=== PATIENT | male | born 1990 | race Hispanic/Latino ===

== ENCOUNTER 2019-01-20 19:24 | Emergency (ER) | payer SELFPAY ==
--- NOTE | 2019-01-20 20:52 | ER ---
Nurse's Notes [facility] Name: Lio Camacho Age: 28 yrs Sex: Male : 1990 Arrival Date: 01/20/2019 Time: 19:35 Bed 24 Private MD: Diagnosis: Chlamydial cystitis and urethritis Presentation: 01/20 19:47 Presenting complaint: Patient states: Burning sensation upon urination for over a week. ca1 Pt also c/o urgency and urinary frequency. Denies fever and chills. Transition of care: patient was not received from another setting of care. Onset of symptoms was January 20, 2019. Risk Assessment: Do you want to hurt yourself or someone else? Patient reports no desire to harm self or others. Initial Sepsis Screen: Does the patient meet any 2 criteria? No. Patient's initial sepsis screen is negative. Does the patient have a suspected source of infection? No. Patient's initial sepsis screen is negative. Care prior to arrival: None. 19:47 Method Of Arrival: Ambulatory ca1 19:47 Acuity: MARTHA 4 ca1 Historical: - Allergies: 19:51 No Known Allergies; ca1 - Home Meds: 19:51 None [Active]; ca1 - PMHx: 19:51 None; ca1 - PSHx: 19:51 Appendectomy; ca1 - Immunization history:: Adult Immunizations not up to date, Flu vaccine is up to date. - Social history:: Smoking status: Patient uses tobacco products, denies chronic smoking, but will smoke occasionally. - Ebola Screening: : Patient negative for fever greater than or equal to 101.5 degrees Fahrenheit, and additional compatible Ebola Virus Disease symptoms Patient denies exposure to infectious person Patient denies travel to an Ebola-affected area in the 21 days before illness onset No symptoms or risks identified at this time. Screenin:31 Abuse screen: Denies threats or abuse. Denies injuries from another. Nutritional mg2 screening: No deficits noted. Tuberculosis screening: No symptoms or risk factors identified. Fall Risk None identified. Assessment: 20:35 General: Appears in no apparent distress. comfortable, Behavior is calm, cooperative. mg2 Pain: Complains of pain in penis Pain does not radiate. Pain currently is 2 out of 10 on a pain scale. Quality of pain is described as burning, Pain began gradually. Neuro: Level of Consciousness is awake, alert, obeys commands, Oriented to person, place, time, situation. Cardiovascular: Capillary refill < 3 seconds Patient's skin is warm and dry. Respiratory: Airway is patent Respiratory effort is even, unlabored, Respiratory pattern is regular, symmetrical. GI: No signs and/or symptoms were reported involving the gastrointestinal system. : Reports burning with urination. : Reports discharge, from penis that is watery, white. EENT: No deficits noted. Derm: Skin is intact, is healthy with good turgor, Skin is pink, warm \T\ dry. normal. Musculoskeletal: Circulation, motion, and sensation intact. Capillary refill < 3 seconds. Vital Signs: 19:51 BP 169 / 91; Pulse 87; Resp 17 S; Temp 98.1(TE); Pulse Ox 99% on R/A; Weight 113.4 kg ca1 (R); Height 5 ft. 10 in. (177.80 cm) (R); Pain 0/10; 20:14 BP 141 / 92; Pulse 86; Resp 17 S; Pulse Ox 100% on R/A; Pain 4/10; jp3 19:51 Body Mass Index 35.87 (113.40 kg, 177.80 cm) ca1 20:14 4/10 on pain scale while urinating. jp3 ED Course: 19:35 Patient arrived in ED. cl3 19:49 Triage completed. ca1 19:51 Arm band placed on right wrist. ca1 19:54 Kwadwo Tellez MD is Attending Physician. kdr 20:05 Gerald Head RN is Primary Nurse. mg2 20:15 Bed in low position. Call light in reach. Side rails up X 1. Adult w/ patient. Warm jp3 blanket given. Verbal reassurance given. Pulse ox on. NIBP on. 20:15 Patient maintains SpO2 saturation greater than 95% on room air. jp3 20:15 Urine collected: clean catch specimen, clear, mariela colored. jp3 21:10 No provider procedures requiring assistance completed. Patient did not have IV access mg2 during this emergency room visit. Administered Medications: 21:11 Drug: AZITHromycin 1 grams Route: PO; mg2 21:14 Follow up: Response: No adverse reaction; Medication administered at discharge. mg2 21:11 Drug: Doxycycline 100 mg Route: PO; mg2 21:14 Follow up: Response: No adverse reaction; Medication administered at discharge. mg2 Outcome: 20:51 Discharge ordered by . kdr 21:14 Patient left the ED. mg2 21:14 Discharged to home ambulatory, with family. mg2 21:14 Condition: good 21:14 Discharge instructions given to patient, family, Instructed on discharge instructions, follow up and referral plans. medication usage, Demonstrated understanding of instructions, follow-up care, medications, Prescriptions given X 1. Signatures: Kwadwo Tellez MD MD kdr Gerald Head RN RN mg2 Enrique Workman jp3 Miguelina Oglesby RN RN ca1 Joi Swanson cl3
--- NOTE | 2019-01-20 20:52 | EDPHYS ---
Physician Documentation [facility] Name: Lio Camacho Age: 28 yrs Sex: Male : 1990 Arrival Date: 01/20/2019 Time: 19:35 Bed 24 Private MD: ED Physician Kwadwo Tellez HPI: 01/20 20:47 This 28 yrs old Male presents to ER via Ambulatory with complaints of Burning kdr To Private. 20:47 The patient presents with urinary symptoms, dysuria. Onset: The symptoms/episode kdr began/occurred gradually, 1 week(s) ago. Modifying factors: The symptoms are alleviated by nothing, the symptoms are aggravated by urinating. Associated signs and symptoms: Pertinent positives: dysuria, nausea. Severity of symptoms: At their worst the symptoms were mild, moderate, just prior to arrival, in the emergency department the symptoms are unchanged. The patient has not experienced similar symptoms in the past. The patient has not recently seen a physician. His is currently being treated for Chlamydia . Denies unprotected sex with anyone other than his . Historical: - Allergies: 19:51 No Known Allergies; ca1 - Home Meds: 19:51 None [Active]; ca1 - PMHx: 19:51 None; ca1 - PSHx: 19:51 Appendectomy; ca1 - Immunization history:: Adult Immunizations not up to date, Flu vaccine is up to date. - Social history:: Smoking status: Patient uses tobacco products, denies chronic smoking, but will smoke occasionally. - Ebola Screening: : Patient negative for fever greater than or equal to 101.5 degrees Fahrenheit, and additional compatible Ebola Virus Disease symptoms Patient denies exposure to infectious person Patient denies travel to an Ebola-affected area in the 21 days before illness onset No symptoms or risks identified at this time. ROS: 20:47 Constitutional: Negative for fever, chills, and weight loss, Eyes: Negative for injury, kdr pain, redness, and discharge, ENT: Negative for injury, pain, and discharge, Neck: Negative for injury, pain, and swelling, Cardiovascular: Negative for chest pain, palpitations, and edema, Respiratory: Negative for shortness of breath, cough, wheezing, and pleuritic chest pain, Abdomen/GI: Negative for abdominal pain, nausea, vomiting, diarrhea, and constipation, Back: Negative for injury and pain, MS/Extremity: Negative for injury and deformity, Skin: Negative for injury, rash, and discoloration, Neuro: Negative for headache, weakness, numbness, tingling, and seizure activity. Psych: Negative for depression, anxiety, suicide ideation, homicidal ideation, and hallucinations, Allergy/Immunology: Negative for hives, rash, and allergies, Endocrine: Negative for neck swelling, polydipsia, polyuria, polyphagia, and marked weight changes, Hematologic/Lymphatic: Negative for swollen nodes, abnormal bleeding, and unusual bruising. 20:47 : Positive for urinary symptoms, urinary frequency, small amounts, burning with urination, penile discharge, penile pain, Negative for bladder incontinence, foul smelling urine, testicular pain Exam: 20:50 Constitutional: This is a well developed, well nourished patient who is awake, alert, kdr and in no acute distress. 20:50 : CVA tenderness, is absent, Male external genitalia: normal, Bladder: is normal. Vital Signs: 19:51 BP 169 / 91; Pulse 87; Resp 17 S; Temp 98.1(TE); Pulse Ox 99% on R/A; Weight 113.4 kg ca1 (R); Height 5 ft. 10 in. (177.80 cm) (R); Pain 0/10; 20:14 BP 141 / 92; Pulse 86; Resp 17 S; Pulse Ox 100% on R/A; Pain 4/10; jp3 19:51 Body Mass Index 35.87 (113.40 kg, 177.80 cm) ca1 20:14 4/10 on pain scale while urinating. jp3 MDM: 20:47 Data reviewed: vital signs, nurses notes, lab test result(s). Counseling: I had a kdr detailed discussion with the patient and/or guardian regarding: the historical points, exam findings, and any diagnostic results supporting the discharge/admit diagnosis, lab results, the need for outpatient follow up. 20:51 Patient medically screened. kdr 01/20 20:14 Order name: Urine Dipstick--Ancillary (enter results) mw2 01/20 20:38 Order name: GC (GONORR/CHLAMYDIA) Probe kdr 01/20 20:38 Order name: Wet Prep kdr Administered Medications: 21:11 Drug: AZITHromycin 1 grams Route: PO; mg2 21:14 Follow up: Response: No adverse reaction; Medication administered at discharge. mg2 21:11 Drug: Doxycycline 100 mg Route: PO; mg2 21:14 Follow up: Response: No adverse reaction; Medication administered at discharge. mg2 Disposition: 01/20/19 20:51 Discharged to Home. Impression: Chlamydial cystitis and urethritis. - Condition is Stable. - Discharge Instructions: Chlamydia, Male, Sexually Transmitted Disease, [id number], Urinary Tract Infection, Adult, [id number]. - Prescriptions for Doxycycline Hyclate 100 mg Oral Tablet - take 1 tablet by ORAL route every 12 hours for 7 days; 14 tablet. - Medication Reconciliation Form, Thank You Letter, Antibiotic Education form. - Follow up: Private Physician; When: 2 - 3 days; Reason: If symptoms return, Further diagnostic work-up, Recheck today's complaints, Continuance of care, Re-evaluation by your physician. - Problem is new. - Symptoms have improved. Signatures: Dispatcher [employer] EDWI Kwadwo Tellez MD MD kdr Gerald Head RN RN mg2 Miguelina Oglesby RN RN ca1 Corrections: (The following items were deleted from the chart) 21:14 20:51 01/20/2019 20:51 Discharged to Home. Impression: Chlamydial cystitis and mg2 urethritis. Condition is Stable. Forms are Medication Reconciliation Form, Thank You Letter, Antibiotic Education, Prescription Opioid Use. Follow up: Private Physician; When: 2 - 3 days; Reason: If symptoms return, Further diagnostic work-up, Recheck today's complaints, Continuance of care, Re-evaluation by your physician. Problem is new. Symptoms have improved. kdr
[2019-01-20] MEDS ORDERED: AZITHROMYCIN 250 MG TAB ONE (21:07)
[2019-01-20] MEDS ORDERED: DOXYCYCLINE 100 MG CAP PO ONE (21:07)
[2019-01-20 21:21] LABS: Urine Blood NEGATIVE (NEG); Urine Glucose NEGATIVE (NEG); Urine Protein NEGATIVE (NEG); Urine Specific Gravity 1.025 (1.005-1.030)
[2019-01-21 01:36] VITALS: TEMP 98.1
[2019-01-21 01:38] VITALS: BP 141/92; O2SAT 100
[2019-01-24 05:02] LABS: C.trachomatis RNA,TMA Detected (Not Detected)
== END 2019-01-20 21:14 | disposition home or self-care (01) ==
LOC: ER 19:24
DX: A56.01 Chlamydial cystitis and urethritis (principal); Z72.0 Tobacco use
CPT/HCPCS: 81003; 87210; 87490; 87590; 99284

== ENCOUNTER 2020-09-10 01:13 | Emergency (ER) | payer SELFPAY ==
--- NOTE | 2020-09-10 03:01 | ER ---
Nurse's Notes [facility] Name: Lio Camacho Age: 29 yrs Sex: Male : 1990 Arrival Date: 09/10/2020 Time: 01:17 Bed 18 Private MD: Diagnosis: Hypertension Presentation: 09/10 01:20 Chief complaint: Patient states: I have been having high blood pressure. 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 I just want to get it looked at. 01:20 Coronavirus screen: Client denies travel out of the [place] in the last 14 days. At this jb4 time, the client does not indicate any symptoms associated with coronavirus-19. Ebola Screen: No symptoms or risks identified at this time. Initial Sepsis Screen: Does the patient meet any 2 criteria? No. Patient's initial sepsis screen is negative. Does the patient have a suspected source of infection? No. Patient's initial sepsis screen is negative. Risk Assessment: Do you want to hurt yourself or someone else? Patient reports no desire to harm self or others. Onset of symptoms was September 10, 2020. Transition of care: patient was not received from another setting of care. 01:20 Method Of Arrival: Ambulatory jb4 01:20 Acuity: MARTHA 4 jb4 Historical: - Allergies: 01:20 No Known Allergies; jb4 - Home Meds: 01:20 None [Active]; jb4 - PMHx: 01:20 None; jb4 - PSHx: 01:20 None; jb4 - Immunization history:: Adult Immunizations up to date. - Social history:: Smoking status: Patient denies any tobacco usage or history of. Patient/guardian denies using alcohol, street drugs. Screenin:20 Abuse screen: Denies threats or abuse. Nutritional screening: No deficits noted. jb4 Tuberculosis screening: No symptoms or risk factors identified. Fall Risk None identified. Assessment: 01:20 General: Appears in no apparent distress. comfortable, Behavior is calm, cooperative, jb4 appropriate for age. Pain: Denies pain. Neuro: Level of Consciousness is awake, alert, obeys commands, Oriented to person, place, time, situation. Cardiovascular: Patient's skin is warm and dry. Respiratory: Airway is patent Respiratory effort is even, unlabored, Respiratory pattern is regular, symmetrical. GI: No signs and/or symptoms were reported involving the gastrointestinal system. : No signs and/or symptoms were reported regarding the genitourinary system. EENT: No signs and/or symptoms were reported regarding the EENT system. Derm: Skin is intact, Skin is pink, warm \T\ dry. Musculoskeletal: Circulation, motion, and sensation intact. Range of motion: intact in all extremities. 03:06 Reassessment: Patient appears in no apparent distress at this time. Patient and/or jb4 family updated on plan of care and expected duration. Pain level reassessed. Patient is alert, oriented x 3, equal unlabored respirations, skin warm/dry/pink. Vital Signs: 01:20 BP 150 / 99; Pulse 97; Resp 16; Temp 98.1(O); Pulse Ox 100% on R/A; Weight 127.01 kg jb4 (R); Height 5 ft. 10 in. (177.80 cm) (R); Pain 0/10; 02:49 BP 139 / 79; Pulse 88; Pulse Ox 99% ; ds4 01:20 Body Mass Index 40.18 (127.01 kg, 177.80 cm) jb4 ED Course: 01:17 Patient arrived in ED. es 01:20 Splint/sling/ice applied as appropriate. Arm band placed on right wrist. jb4 01:20 Patient has correct armband on for positive identification. Bed in low position. Call jb4 light in reach. Side rails up X 1. Pulse ox on. NIBP on. 01:30 Rishabh Dover, KAUR is Primary Nurse. jb4 01:33 Triage completed. jb4 02:50 Roel Stern MD is Attending Physician. pkl 03:06 No provider procedures requiring assistance completed. Patient did not have IV access jb4 during this emergency room visit. Administered Medications: No medications were administered Outcome: 03:01 Discharge ordered by . pkl 03:06 Discharged to home ambulatory. jb4 03:06 Condition: stable 03:06 Discharge instructions given to patient, Instructed on discharge instructions, follow up and referral plans. medication usage, Demonstrated understanding of instructions, follow-up care, medications, Prescriptions given X 1. 03:06 Patient left the ED. jb4 Signatures: Roel Stern MD MD pkl Salyer, Edna es Swanson, Donovan ds4 Rishabh Dover, RN RN jb4 Corrections: (The following items were deleted from the chart) 01:33 01:20 PMHx: Unable to Obtain; jb4 jb4
--- NOTE | 2020-09-10 03:01 | EDPHYS ---
Physician Documentation [facility] Name: Lio Camacho Age: 29 yrs Sex: Male : 1990 Arrival Date: 09/10/2020 Time: 01:17 Bed 18 Private MD: ED Physician Roel Stern HPI: 09/10 02:58 This 29 yrs old Male presents to ER via Ambulatory with complaints of High pkl Blood Pressure. 02:58 Onset: The symptoms/episode began/occurred 2 month(s) ago. Associated signs and pkl symptoms: The patient has no apparent associated signs or symptoms. Family H/O hypertension. Historical: - Allergies: 01:20 No Known Allergies; jb4 - Home Meds: 01:20 None [Active]; jb4 - PMHx: 01:20 None; jb4 - PSHx: 01:20 None; jb4 - Immunization history:: Adult Immunizations up to date. - Social history:: Smoking status: Patient denies any tobacco usage or history of. Patient/guardian denies using alcohol, street drugs. ROS: 02:58 Eyes: Negative for injury, pain, redness, and discharge, ENT: Negative for injury, pkl pain, and discharge, Neck: Negative for injury, pain, and swelling, Cardiovascular: Negative for chest pain, palpitations, and edema, Respiratory: Negative for shortness of breath, cough, wheezing, and pleuritic chest pain, Abdomen/GI: Negative for abdominal pain, nausea, vomiting, diarrhea, and constipation, Back: Negative for injury and pain, : Negative for injury, bleeding, discharge, and swelling, MS/Extremity: Negative for injury and deformity, Skin: Negative for injury, rash, and discoloration, Neuro: Negative for headache, weakness, numbness, tingling, and seizure. Exam: 02:58 Head/Face: Normocephalic, atraumatic. Eyes: Pupils equal round and reactive to light, pkl extra-ocular motions intact. Lids and lashes normal. Conjunctiva and sclera are non-icteric and not injected. Cornea within normal limits. Periorbital areas with no swelling, redness, or edema. ENT: Nares patent. No nasal discharge, no septal abnormalities noted. Tympanic membranes are normal and external auditory canals are clear. Oropharynx with no redness, swelling, or masses, exudates, or evidence of obstruction, uvula midline. Mucous membranes moist. Neck: Trachea midline, no thyromegaly or masses palpated, and no cervical lymphadenopathy. Supple, full range of motion without nuchal rigidity, or vertebral point tenderness. No Meningismus. Chest/axilla: Normal chest wall appearance and motion. Nontender with no deformity. No lesions are appreciated. Cardiovascular: Regular rate and rhythm with a normal S1 and S2. No gallops, murmurs, or rubs. Normal PMI, no JVD. No pulse deficits. Respiratory: Lungs have equal breath sounds bilaterally, clear to auscultation and percussion. No rales, rhonchi or wheezes noted. No increased work of breathing, no retractions or nasal flaring. Abdomen/GI: Soft, non-tender, with normal bowel sounds. No distension or tympany. No guarding or rebound. No evidence of tenderness throughout. Back: No spinal tenderness. No costovertebral tenderness. Full range of motion. Skin: Warm, dry with normal turgor. Normal color with no rashes, no lesions, and no evidence of cellulitis. MS/ Extremity: Pulses equal, no cyanosis. Neurovascular intact. Full, normal range of motion. Neuro: Awake and alert, GCS 15, oriented to person, place, time, and situation. Cranial nerves II-XII grossly intact. Motor strength 5/5 in all extremities. Sensory grossly intact. Cerebellar exam normal. Normal gait. Vital Signs: 01:20 BP 150 / 99; Pulse 97; Resp 16; Temp 98.1(O); Pulse Ox 100% on R/A; Weight 127.01 kg jb4 (R); Height 5 ft. 10 in. (177.80 cm) (R); Pain 0/10; 02:49 BP 139 / 79; Pulse 88; Pulse Ox 99% ; ds4 01:20 Body Mass Index 40.18 (127.01 kg, 177.80 cm) jb4 MDM: 02:51 Patient medically screened. pkl 03:00 Data reviewed: vital signs, nurses notes. pkl Administered Medications: No medications were administered Disposition Summary: 09/10/20 03:01 Discharge Ordered Location: Home pkl Problem: new pkl Symptoms: are unchanged pkl Condition: Stable pkl Diagnosis - Hypertension pkl Followup: pkl - With: Private Physician - When: 1 week - Reason: Re-evaluation by your physician Discharge Instructions: - Discharge Summary Sheet pkl Forms: - Medication Reconciliation Form pkl - Thank You Letter pkl - Antibiotic Education pkl - Prescription Opioid Use pkl Prescriptions: - Carvedilol 12.5 mg Oral Tablet - take 1 tablet by ORAL route 2 times per day with food; 60 tablet; Refills: 0, pkl Product Selection Permitted Signatures: Roel Stern MD MD pkl Rishabh Dover RN RN jb4 Corrections: (The following items were deleted from the chart) 01:33 01:20 PMHx: Unable to Obtain; jb4 jb4
[2020-09-10 04:44] VITALS: TEMP 98.1
[2020-09-10 04:46] VITALS: BP 139/79; O2SAT 99
== END 2020-09-10 03:06 | disposition home or self-care (01) ==
LOC: ER 01:13
DX: I10 Essential (primary) hypertension (principal)
CPT/HCPCS: 99283

== ENCOUNTER 2021-06-30 09:05 | Inpatient (IN) | payer SELFPAY ==
--- OUTSIDE RECORDS SUMMARY | 2021-06-30 09:09 | XMS REPORT | Continuity of Care Document ---
:1990 Author Organization [facility] t Address [facility] [place] [address] Care Team Providers Name Role Phone Toño Roland [facility], [facility] Primary Care P hysician Regla CHOWDHURY Attending Clinician Unavailable Ashely Renee Attending Clinician Freddie GORDON G Attending Clinician Ben CH Attending Clinician Unavailable Shalonda Attending Clinician Unavailable Alex Attending Clinician Unavailable Reva Valverde Attending Clinician Unavailable Ben [facility] Admitting Clinician Unavailable Payers Payer Name Policy Type Policy Number Effective Date Expiration Date S ource Problems Condition Condition Condition Status Onset Resolution Last Treating Co mments Source Name Details Category Date Date Treatment Clinician Date No known No known Disease Unive rs active active ity of problems problems [facility] Allergies, Adverse Reactions, Alerts Allergy Allergy Status Severity Reaction(s) Onset Inactive Treating Comm ents Source Name Type Date Date Clinician No DA Active U 2020-02 STLSJX Allergy Informat 00:00: ion 00 Availabl e NO KNOWN Drug Active Univers ALLERGIE Class ity of S [facility] Social History Social Habit Start Date Stop Date Quantity Comments Source Exposure to Not sure [facility] SARS-CoV-2 (event) Medica l Branch Alcohol intake 2021-05-27 2021-05-27 [facility] 00:00:00 00:00:00 [facility] Tobacco use and 2011-10-05 2011-10-05 Never used [facility] exposure 00:00:00 00:00:00 [facility] Sex Assigned At [birth year] [facility] 00:00:00 00:00:00 [facility] Smoking Status Start Date Stop Date Source Never smoker [facility] Medications Ordered Filled Start Stop Current Ordering Indication Dosage Frequency Signature Comments Components Source Medication Medication Date Date Medication? Clinician (SIG) Name Name magnesium 2021- No 2g 2 g, IV Univ ers sulfate in 06-04 Piggyback, it y of water 2 21:00: 21:03 Administer [place] as gram/50 mL 00 :00 over 60 Medica l (4 %) Minutes, Branch infusion 2 ONCE, 1 g dose, On 06/04/21 at 1600, Routine carvediloL 2021- No 12.5mg Take 12.5 Univers 12.5 mg 05-27- mg by ity of tablet 18:04: 00:00 mouth 2 [place] 09 :00 (two) Medical [facility] daily with meals. carvediloL 2021- Yes [id number] 12.5mg Take 1 Univers 12.5 mg 05-27-09 tablet by ity of tablet 00:00: 04:59 mouth 2 [place] 00 :00 (two) Medical [facility] daily with meals for 30 days. carvediloL 2021- Yes [id number] 12.5mg Take 1 Univers 12.5 mg 05-27-09 tablet by ity of tablet 00:00: 04:59 mouth 2 [place] 00 :00 (two) Medical times [place] daily with meals for 30 days. cetirizine 2009-0 Yes 10mg Take 1 Tab U nivers (ZYRTEC) 10 9-17 by mouth ity of mg tablet 00:00: at bedtime [place] 00 as needed Medical for Branch Allergies and Runny nose. cetirizine 2009-0 Yes 10mg Take 1 Tab U nivers (ZYRTEC) 10 9-17 by mouth ity of mg tablet 00:00: at bedtime [place] 00 as needed Medical for Branch Allergies and Runny nose. Immunizations Ordered Immunization Filled Immunization Date Status Commen ts Source Name Name Influenza Virus 2009-11-05 Completed Universit y of Vaccine 00:00:00 [facility] Influenza Virus 2009-11-05 Completed Universit y of Vaccine 00:00:00 [facility] Influenza Virus 2008-12-29 Completed Universit y of Vaccine 00:00:00 [facility] Influenza Virus 2008-12-29 Completed Universit y of Vaccine 00:00:00 [facility] Meningococcal 2008-09-18 Completed University of Polysaccharide 00:00:00 [facility] (groups A, C, Y and Branc h W-135) conjugate vaccine (MCV4P) Varicella 2008-09-18 Completed University of (varivax)(chicken 00:00:00 [facility] edical pox) [place] Meningococcal 2008-09-18 Completed University of Polysaccharide 00:00:00 [facility] (groups A, C, Y and Branc h W-135) conjugate vaccine (MCV4P) Varicella 2008-09-18 Completed University of (varivax)(chicken 00:00:00 [place] M edical pox) Branch TDAP 2007-01-26 Completed University of 00:00:00 [facility] HEPATITIS A 2007-01-26 Completed University of 00:00:00 [facility] TDAP 2007-01-26 Completed University of 00:00:00 [facility] HEPATITIS A 2007-01-26 Completed University of 00:00:00 [facility] HEPATITIS A 2003-12-11 Completed University of 00:00:00 [facility] HEPATITIS A 2003-12-11 Completed University of 00:00:00 [facility] Varicella 1998-05-20 Completed University of (varivax)(chicken 00:00:00 [place] M edical pox) Branch Varicella 1998-05-20 Completed University of (varivax)(chicken 00:00:00 [facility] edical pox) Branch MMR 1996-12-16 Completed University of 00:00:00 [facility] Polio (IPV/OPV) 1996-12-16 Completed Universit y of 00:00:00 [facility] DTAP 1996-12-16 Completed University of 00:00:00 [facility] MMR 1996-12-16 Completed University of 00:00:00 [facility] Polio (IPV/OPV) 1996-12-16 Completed Universit y of 00:00:00 [facility] DTAP 1996-12-16 Completed University of 00:00:00 [facility] MMR 1994-04-10 Completed University of 00:00:00 [facility] DTAP 1994-04-10 Completed University of 00:00:00 [facility] HIB 4 Dose Schedule 1994-04-10 Completed Unive rsity of 00:00:00 [facility] MMR 1994-04-10 Completed University of 00:00:00 [facility] DTAP 1994-04-10 Completed University of 00:00:00 [facility] HIB 4 Dose Schedule 1994-04-10 Completed Unive rsity of 00:00:00 [facility] Hep B, Adol or Pedi 1993-07-13 Completed Unive rsity of Dosage 00:00:00 [facility] Polio (IPV/OPV) 1993-07-13 Completed Universit y of 00:00:00 [facility] DTAP 1993-07-13 Completed University of 00:00:00 [facility] HIB 4 Dose Schedule 1993-07-13 Completed Unive rsity of 00:00:00 [facility] Hep B, Adol or Pedi 1993-07-13 Completed Unive rsity of Dosage 00:00:00 [facility] Polio (IPV/OPV) 1993-07-13 Completed Universit y of 00:00:00 [facility] DTAP 1993-07-13 Completed University of 00:00:00 [facility] HIB 4 Dose Schedule 1993-07-13 Completed Unive rsity of 00:00:00 [facility] Polio (IPV/OPV) 1993-05-03 Completed Universit y of 00:00:00 [facility] DTAP 1993-05-03 Completed University of 00:00:00 [facility] HIB 4 Dose Schedule 1993-05-03 Completed Unive rsity of 00:00:00 [facility] Polio (IPV/OPV) 1993-05-03 Completed Universit y of 00:00:00 [facility] DTAP 1993-05-03 Completed University of 00:00:00 [facility] HIB 4 Dose Schedule 1993-05-03 Completed Unive rsity of 00:00:00 [facility] Polio (IPV/OPV) 1993-02-21 Completed Universit y of 00:00:00 [facility] DTAP 1993-02-21 Completed University of 00:00:00 [facility] HIB 4 Dose Schedule 1993-02-21 Completed Unive rsity of 00:00:00 [facility] Polio (IPV/OPV) 1993-02-21 Completed Universit y of 00:00:00 [facility] DTAP 1993-02-21 Completed University of 00:00:00 [facility] HIB 4 Dose Schedule 1993-02-21 Completed Unive rsity of 00:00:00 [facility] Hep B, Adol or Pedi 1993-01-31 Completed Unive rsity of Dosage 00:00:00 [facility] Hep B, Adol or Pedi 1993-01-31 Completed Unive rsity of Dosage 00:00:00 [facility] Hep B, Adol or Pedi 1990 Completed Unive rsity of Dosage 00:00:00 [facility] Hep B, Adol or Pedi 1990 Completed Unive rsity of Dosage 00:00:00 [facility] Vital Signs Vital Name Observation Time Observation Value Comments Source Systolic blood 2021-06-04 21:00:00 134 mm[Hg] Univer sity of pressure [facility] Diastolic blood 2021-06-04 21:00:00 74 mm[Hg] Unive rsity of pressure [facility] Heart rate 2021-06-04 21:00:00 63 /min [facility] Respiratory rate 2021-06-04 21:00:00 18 /min [facility] Oxygen saturation in 2021-06-04 21:00:00 98 /min [facility] Arterial blood by [facility] Pulse oximetry Branch Body temperature 2021-06-04 18:05:00 36.83 Leda [facility] Body height 2021-06-04 18:05:00 177.8 cm [facility] Body weight 2021-06-04 18:05:00 124.739 kg [facility] BMI 2021-06-04 18:05:00 39.46 kg/m2 [facility] Systolic blood 2021-05-27 23:00:00 150 mm[Hg] Univer sity of pressure [facility] Diastolic blood 2021-05-27 23:00:00 104 mm[facility]Hg[facility] 2021-05-27 23:00:00 75 /min [facility] Respiratory rate 2021-05-27 23:00:00 19 /min [facility] Oxygen saturation in 2021-05-27 23:00:00 98 /min [facility] Arterial blood by [facility] Pulse oximetry [place] Body temperature 2021-05-27 20:30:00 36.78 Leda [facility] Body weight 2021-05-27 20:30:00 124.739 kg [facility] Procedures Procedure Date / Time Performing Clinician Source Performed MAGNESIUM 2021-06-04 20:09:00 Regla Chowdhury [facility] TROPONIN I 2021-06-04 20:09:00 Regla Chowdhury [facility] COMP. METABOLIC PANEL 2021-06-04 20:09:00 Regla Chowdhury [facility] ([id number]) [facility] CBC WITH DIFF 2021-06-04 20:09:00 Regla Chowdhury [facility] CONSENT/REFUSAL FOR 2021-06-04 17:59:27 [facility] Name [facility] URINALYSIS 2021-05-27 21:38:00 [facility] Ch [facility] URINE DRUG (IMMUNOASSAY) 2021-05-27 21:38:00 [facility] - COMPREHENSIVE DRUG Medical [facility] SCREEN W/O REFLEX XR CHEST 1 VW 2021-05-27 21:08:28 [facility] Ch [facility] LIPASE 2021-05-27 21:03:00 [facility] TROPONIN I 2021-05-27 21:03:00 [facility] THYROID STIMULATING 2021-05-27 21:03:00 [facility] Ch [facility] HORMONE [facility] COMP. METABOLIC PANEL 2021-05-27 21:03:00 [facility] ([id number]) [facility] CBC WITH DIFF 2021-05-27 21:03:00 [facility] N-TERMINAL PRO-BNP 2021-05-27 21:03:00 [facility] HB ECG ROUTINE & RHYTHM 2021-05-27 20:54:36 [facility] Ch Uni [facility] NOTICE OF PRIVACY 2021-05-27 20:24:14 Doctor Unassigned, No Univ [facility] PRACTICES Name [facility] CONSENT/REFUSAL FOR 2021-05-27 20:21:45 Doctor Unassigned, No Un [facility] DIAGNOSIS AND TREATMENT Name [facility] Encounters Start End Encounter Admission Attending Care Care Encounter Source Date/Time Date/Time Type Type Clinicians Facility Department ID 2021-03-22 Outpatient IBNS IBNS [id number] [place] 12:27:04 [id number] Zhang 2021-06-04 2021-06-04 Emergency X Regla CHOWDHURY [facility] ERT [id number] Univers 13:06[facility]00 [facility] 2021-06-04 2021-06-04 Emergency Regla Chowdhury [facility] [id number] Univers 13:06:00 16:37:00 Ashely ELISE [id number] i ty of [place] [id number] [facility] [id number] [address] 2021-05-27 2021-05-27 Emergency Freddie [facility] [id number] Univers 15:41:00 18:08:00 Sanford ELISE [id number] ity of [place] [id number] [facility] [id number] [address] 2021-05-272021-05-27 Emergency X FREDDIE, [facility] ERT [id number] Univers 15:41:00 18:08:00 SANFORD beltran [facility] 2020-12-04 2020-12-04 Emergency ER Shalonda, STLSJX STLSJX [id number] STLSJX 09:41:00 09:41:00 Blossom -[id number] 2020-12-04 Emergency ER [id number] 07:30:00 07:30:00 Deric -[id number] [facility] 2020-12-03 2020-12-03 Emergency ER Enmanuel, STLSJG STLSJG [id number] 15:32:00 18:00:00 Michael -[id number] [facility] Results Test Description Test Time Test Comments Results Result Comments Source TROPONIN I 2021-06-04 20:44:56 Test Item Value Reference Range Interpretation Comme nts TROPONIN I (test code = 0.012 ng/mL See_Comment [Au tomated message] The [id number]) system which ge nerated this result tra nsmitted reference range : <=0.034. The reference r fadi was not used to int erpret this result as normal/abnormal . MERRILL (test code = MERRILL) Reference (Normal) Range (defined by the 99th percentile reference limit): <= 0.034 ng/mL Note: Cardiac troponin begins to rise 3-4 hours after the onset of ischemia. Repeat in 4-6 hours if the sample was drawn within 3-4 hours of the onset of the symptom and found normal. Diagnosis of myocardial injury is made with acute changes in cTn concentrations with at least one serial sample above the 99th percentile upper reference limit (URL), taken together with the patient's clinical presentation. Biotin has been reported to cause a negative bias, interpret results relative to patient's use of biotin. Lab Interpretation Normal (test code = 51243-0) [facility] WITH [id number] 20:39:57 Test Item Value Reference Range Interpretation Comments WBC (test code = See_Comment [Automated 6690-2) message] The [employer] stem which generated this result transmitted reference range : 4.20 - 10.70 10*3/?L. The reference range was not used to interpret this result as normal/abnormal . RBC (test code = See_Comment [Automated 789-8) message] The sy stem which generated this result transmitted reference range : 4.26 - 5.52 10*6/?L. The reference range was not used to interpret this result as normal/abnormal . HGB (test code = 14.2 g/dL 12.2-16.4 718-7) HCT (test code = 45.4 % 38.4-49.3 4544-3) MCV (test code = 86.8 fL 81.7-95.6 787-2) MCH (test code = 27.2 pg 26.1-32.7 785-6) MCHC (test code = 31.3 g/dL 31.2-35.0 786-4) RDW-SD (test code = 41.3 fL 38.5-51.6 52348-1) RDW-CV (test code = 13.1 % 12.1-15.4 788-0) PLT (test code = See_Comment [Automated 777-3) message] The sy stem which generated this result transmitted reference range : 150 - 328 10*3/ ?L. The reference r fadi was not used to interpret this result as normal/abnormal . MPV (test code = 11.0 fL 9.8-13.0 96839-1) NRBC/100 WBC (test See_Comment [Automat ed code = 7596072110) message] The system which generated this result transmitted reference range : 0.0 - 10.0 /100 WBCs. The refer ence range was not u sed to interpret th is result as normal/abnormal . NRBC x10^3 (test code <0.01 See_Comment [Auto mated = 0191081544) message] The s ystem which generated this result transmitted reference range : 10*3/?L. The reference range was not used to interpret this result as normal/abnormal . GRAN MAT (NEUT) % 71.6 % (test code = 770-8) IMM GRAN % (test code 0.70 % = 1285909244) LYMPH % (test code = 19.8 % 736-9) MONO % (test code = 5.8 % 5905-5) EOS % (test code = 1.9 % 713-8) BASO % (test code = 0.2 % 706-2) GRAN MAT x10^3(ANC) 7.67 10*3/uL 1.99-6.95 H (test code = 7873109928) IMM GRAN x10^3 (test 0.07 10*3/uL 0.00-0.06 H code = 0295209390) LYMPH x10^3 (test code 2.12 10*3/uL 1.09-3.23 = 731-0) MONO x10^3 (test code 0.62 10*3/uL 0.36-1.02 = 742-7) EOS x10^3 (test code = 0.20 10*3/uL 0.06-0.53 711-2) BASO x10^3 (test code <0.03 0.01-0.09 = 704-7) Lab Interpretation Abnormal (test code = 85765-9) [facility] 20:33:35 Test Item Value Reference Range Interpretation Comments MAGNESIUM (test code = 0676787582) 2.1 mg/dL 1.7-2.4 Lab Interpretation (test code = Normal 52222-2) [facility]OLIC PANEL ([id number])2021-06-04 20:33:14 Test Item Value Reference Range Interpretation Comments NA (test code = 140 mmol/L 135-145 4286840600) K (test code = 4.5 mmol/L 3.5-5.0 2499830840) CL (test code = 103 mmol/L 98-108 1071024506) CO2 TOTAL (test code = 24 mmol/L 23-31 1131516300) AGAP (test code = 2-16 7369883813) BUN (test code = 12 mg/dL 7-23 7860908083) GLUCOSE (test code = 92 mg/dL 70-110 2144825845) CREATININE (test code = 0.78 mg/dL 0.60-1.25 4974412435) TOTAL BILI (test code = 0.6 mg/dL 0.1-1.6 3519707012) CALCIUM (test code = 8.9 mg/dL 8.6-10.6 5170572187) T PROTEIN (test code = 8.3 g/dL 6.3-8.2 H 9703670486) ALBUMIN (test code = 5.0 g/dL 3.5-5.0 3686944572) ALK PHOS (test code = 97 U/L 34-122 0735582396) ALTv (test code = 27 U/L 5-50 1742-6) AST(SGOT) (test code = 26 U/L 13-40 7971464228) eGFR (test code = mL/min/1.73m2 1739157224) MERRILL (test code = MERRILL) Association of Glomerular Filtration Rate (GFR) and Staging of Kidney Disease* + --+ --+ ------+| GFR (mL/min/1.73 m2) ?| With Kidney Damage ?| ?Without Kidney Damage+ --------+ --------+ +| ?>90 ?| ?Stage one ?| ? Normal ?+ ---+ ---+ -------+| ?60-89 ?| ?Stage two ?| ? Decreased GFR ? + --+ --+ ------+| ?30-59 ?| ?Stage three ?| ? Stage three ? + --+ --+ ------+| ?15-29 ?| ?Stage four ? | ? Stage four ?+ ---+ ---+ -------+| ?<15 (or dialysis) ? ?| ?Stage five ? | ? Stage five ?+ ---+ ---+ -------+ *Each stage assumes the associated GFR level has been in effect for at least three months. ?Stages 1 to 5, with or without kidney disease, indicate chronic kidney disease. Notes: Determination of stages one and two (with eGFR >59mL/min/1.73 m2) requires estimation of kidney damage for at least three months as defined by structural or functional abnormalities of the kidney, manifested by either:Pathological abnormalities or Markers of kidney damage (including abnormalities in the composition of the blood or urine or abnormalities in imaging tests). Lab Interpretation Abnormal (test code = 73956-5) [facility] [id number] 22:10:20 Test Item Value Reference Range Interpretation Comments TSH (test code = See_Comment [Automated message] 7407272941) The system [employer] generated this result transmitted ref erence range: 0.45 - 4 .70 mIU/L. The refe rence range was not u sed to interpret this result as normal/abnor mal. Lab Interpretation (test Normal code = 93250-0) [facility] [id number] 21:52:01 Test Item Value Reference Interpretation Comments Range TROPONIN I (test 0.012 ng/mL See_Comment [Automated code = 4187233470) message] The system which generated this result transmitted reference range : <=0.034. The reference range was not used to interpret this result as normal/abnormal . MERRILL (test code = Reference (Normal) MERRILL) Range (defined by the 99th percentile reference limit): <= 0.034 ng/mL Note: Cardiac troponin begins to rise 3-4 hours after the onset of ischemia. Repeat in 4-6 hours if the sample was drawn within 3-4 hours of the onset of the symptom and found normal. Diagnosis of myocardial injury is made with acute changes in cTn concentrations with at least one serial sample above the 99th percentile upper reference limit (URL), taken together with the patient's clinical presentation. Biotin has been reported to cause a negative bias, interpret results relative to patient's use of biotin. Lab Interpretation Normal (test code = 19577-7) [facility] [id number] 21:48:55 Test Item Value Reference Range Interpretation Comments NT-proBNP (test code 27 pg/mL See_Comment [Autom ated = 6785633884) message] The system which generated this result transmitted reference range : <=125. The reference range was not used to interpret this result as normal/abnormal . MERRILL (test code = MERRILL) Biotin has been reported to cause a negative bias, interpret results relative to patient's use of biotin. Lab Interpretation Normal (test code = 64104-9) [facility]. METABOLIC PANEL ([id number])2021-05-27 21:40:15 Test Item Value Reference Range Interpretation Comments NA (test code = 137 mmol/L 135-145 6465627797) K (test code = 5.4 mmol/L 3.5-5.0 H 6404599103) CL (test code = 104 mmol/L 98-108 5280972139) CO2 TOTAL (test code = 25 mmol/L 23-31 9075687034) AGAP (test code = 2-16 6542449516) BUN (test code = 14 mg/dL 7-23 3396834847) GLUCOSE (test code = 96 mg/dL 70-110 8764246548) CREATININE (test code = 0.84 mg/dL 0.60-1.25 8486177892) TOTAL BILI (test code = 0.9 mg/dL 0.1-1.5 8119074420) CALCIUM (test code = 8.5 mg/dL 8.6-10.6 L 2560387734) T PROTEIN (test code = 8.1 g/dL 6.3-8.2 2217805438) ALBUMIN (test code = 4.8 g/dL 3.5-5.0 6881509980) ALK PHOS (test code = 79 U/L 34-122 7395055257) ALTv (test code = 32 U/L 5-50 2-6) AST(SGOT) (test code = 44 U/L 13-40 H 7213942782) eGFR (test code = mL/min/1.73m2 7216699530) MERRILL (test code = MERRILL) Association of Glomerular Filtration Rate (GFR) and Staging of Kidney Disease* + --+ --+ ------+| GFR (mL/min/1.73 m2) ?| With Kidney Damage ?| ?Without Kidney Damage+ --------+ --------+ +| ?>90 ?| ?Stage one ?| ? Normal ?+ ---+ ---+ -------+| ?60-89 ?| ?Stage two ?| ? Decreased GFR ? + --+ --+ ------+| ?30-59 ?| ?Stage three ?| ? Stage three ? + --+ --+ ------+| ?15-29 ?| ?Stage four ? | ? Stage four ?+ ---+ ---+ -------+| ?<15 (or dialysis) ? ?| ?Stage five ? | ? Stage five ?+ ---+ ---+ -------+ *Each stage assumes the associated GFR level has been in effect for at least three months. ?Stages 1 to 5, with or without kidney disease, indicate chronic kidney disease. Notes: Determination of stages one and two (with eGFR >59mL/min/1.73 m2) requires estimation of kidney damage for at least three months as defined by structural or functional abnormalities of the kidney, manifested by either:Pathological abnormalities or Markers of kidney damage (including abnormalities in the composition of the blood or urine or abnormalities in imaging tests). Lab Interpretation Abnormal (test code = 07901-8) [facility] 21:39:39 Test Item Value Reference Range Interpretation Comments LIPASE (test code = 7591569555) 62 U/L 0-220 Lab Interpretation (test code = Normal 51879-9) [facility] WITH [id number] 21:20:32 Test Item Value Reference Range Interpretation Comments WBC (test code = See_Comment [Automated message] 0290-2) The system [employer] generated this result transmitted ref erence range: 4.20 - 1 0.70 10*3/?L. The re ference range was not u sed to interpret this result as normal/abnor mal. RBC (test code = See_Comment [Automated message] 079-8) The system [employer] generated this result transmitted ref erence range: 4.26 - 5 .52 10*6/?L. The re ference range was not u sed to interpret this result as normal/abnor mal. HGB (test code = 14.2 g/dL 12.2-16.4 718-7) HCT (test code = 44.3 % 38.4-49.3 4544-3) MCV (test code = 85.2 fL 81.7-95.6 787-2) MCH (test code = 27.3 pg 26.1-32.7 785-6) MCHC (test code = 32.1 g/dL 31.2-35.0 786-4) RDW-SD (test code 42.2 fL 38.5-51.6 = 86354-1) RDW-CV (test code 13.4 % 12.1-15.4 = 788-0) PLT (test code = See_Comment [Automated message] 297-3) The system [employer] generated this result transmitted ref erence range: 150 - 32 8 10*3/?L. The re ference range was not u sed to interpret this result as normal/abnor mal. MPV (test code = 10.8 fL 9.8-13.0 39156-8) NRBC/100 WBC (test See_Comment [Automat ed message] code = 0428898516) The syste m which generated this result transmitted ref erence range: 0.0 - 10 .0 /100 WBCs. The refer ence range was not u sed to interpret this result as normal/abnor mal. NRBC x10^3 (test <0.01 See_Comment [Automated message] code = 2022873622) The syste m which generated this result transmitted ref erence range: 10*3/?L. The reference range was not used to interpr et this result as normal/abnormal . GRAN MAT (NEUT) % 69.2 % (test code = 770-8) IMM GRAN % (test 0.30 % code = 6144627655) LYMPH % (test code 19.2 % = 736-9) MONO % (test code 7.0 % = 5905-5) EOS % (test code = 4.1 % 713-8) BASO % (test code 0.2 % = 706-2) GRAN MAT 6.94 10*3/uL 1.99-6.95 x10^3(ANC) (test code = 6365606683) IMM GRAN x10^3 0.03 10*3/uL 0.00-0.06 (test code = 0396692904) LYMPH x10^3 (test 1.93 10*3/uL 1.09-3.23 code = 731-0) MONO x10^3 (test 0.70 10*3/uL 0.36-1.02 code = 742-7) EOS x10^3 (test 0.41 10*3/uL 0.06-0.53 code = 711-2) BASO x10^3 (test <0.03 0.01-0.09 code = 704-7) [facility], [id number] 08:13:00 Test Item Value Reference Range Interpretation Comments Culture, Urine (test code = URC) NG48 Culture, [id number] 14:17:00 Test Item Value Reference Range Interpretation Comments Culture, Urine (test code = URC) NG36 [id number] 09:06:00 Test Item Value Reference Range Interpretation Comments Urinalysis (test code = Yellow Yellow UACLR) Urinalysis (test code = Slightly Cloudy Clear UACLY) Urinalysis (test code = SPGR) 1.027 1.002-1.036 N Urinalysis (test code = ARACELI) 5.0 5.0-9.0 N Urinalysis (test code = Negative Negative UALEU) Urinalysis (test code = Negative Negative UANIT) Urinalysis (test code = Trace mg/dL Neg-Trace PROUADIP) Urinalysis (test code = Negative mg/dL Negative GLUCU) Urinalysis (test code = KETU) Negative mg/dL Negative Urinalysis (test code = 0.2 mg/dL Less than 2 UAUROB) Urinalysis (test code = Negative Negative UABIL) Urinalysis (test code = Moderate Negative A UABLD) Urine Source: Urine [id number] 08:25:00 Test Item Value Reference Range Interpretation Comments Chemistry (test code 138 mmol/L 136-145 N = NA-T) Chemistry (test code 3.8 mmol/L 3.5-5.1 N = K-T) Chemistry (test code 107 mmol/L 98-107 N = CL) Chemistry (test code 20 mmol/L 22-29 L = CO2) Chemistry (test code 15 mmol/L 10-20 N = ANGP) Chemistry (test code 14 mg/dL 8.9-20.6 N = BUN) Chemistry (test code 1.04 mg/dL 0.7-1.3 N = CREATT) Chemistry (test code 86 Referen ce Range for = EGFRMDRD) Estimated GFR: Great er than 90 mL/min/1.73 m2NOTE:The MDRD equation has no t been validated for u se with theelderly (ove r 70 years of age), women, patientswith se rious comorbid condit ion or persons with ex tremes ofbody size, mu scle mass, or nutrit ional status. Chemistry (test code 110 mg/dL 70-105 H = GLU-T) Chemistry (test code 8.8 mg/dL 7.8-10.44 N = CA) [id number] 08:12:00 Test Item Value Reference Range Interpretation Comments Hematology (test code = WBCT) 9.8 thou/uL 4.8-10.8 N Hematology (test code = RBCT) 4.85 mill/uL 4.70-6.10 N Hematology (test code = HGBT) 13.2 g/dL 14.0-18.0 L Hematology (test code = HCTT) 42.9 % 42.0-52.0 N Hematology (test code = MCV) 88.4 fL 78.0-98.0 N Hematology (test code = MCH) 27.3 pg 27.0-31.0 N Hematology (test code = MCHC) 30.9 g/dL 32.0-36.0 L Hematology (test code = RDW) 12.4 % 11.5-14.5 N Hematology (test code = PLTT) 270 thou/uL 130-400 N Hematology (test code = MPV) 8.6 fL 7.4-10.4 N Hematology (test code = %NEUT) 64.0 % 42.0-75.0 N Hematology (test code = %LYMPH) 23.5 % 21.0-51.0 N Hematology (test code = %MONO) 6.6 % 0.0-10.0 N Hematology (test code = %EOS) 5.5 % 0.0-10.0 N Hematology (test code = %BASO) 0.3 % 0.0-1.0 N Hematology (test code = NEUT#) 6.3 thou/uL 1.40-6.50 N Hematology (test code = LYMPH#) 2.3 thou/uL 1.20-3.40 N Hematology (test code = MONO#) 0.7 thou/uL 0.11-0.59 H Hematology (test code = EOS#) 0.5 thou/uL 0.0-0.7 N Hematology (test code = BASO#) 0.0 thou/uL 0.0-0.2 N [id number] 16:45:00 Test Item Value Reference Range Interpretation Comments Urinalysis (test code = UACLR) Yellow Yellow Urinalysis (test code = UACLY) Cloudy Clear Urinalysis (test code = SPGR) 1.030 1.002-1.036 N Urinalysis (test code = ARACELI) 5.0 5.0-9.0 N Urinalysis (test code = UALEU) Negative Negative Urinalysis (test code = UANIT) Negative Negative Urinalysis (test code = 100 mg/dL Neg-Trace A PROUADIP) Urinalysis (test code = GLUCU) Negative mg/dL Negative Urinalysis (test code = KETU) Negative mg/dL Negative Urinalysis (test code = 1.0 mg/dL Less than 2 UAUROB) Urinalysis (test code = UABIL) Negative Negative Urinalysis (test code = UABLD) Large Negative A Urine Source: Urine [id number] 16:45:00 Test Item Value Reference Range Interpretation Comments Urinalysis (test code = Greater than 50 HPF 0-3 A UARBC) Urinalysis (test code = 4-6 HPF 0-3 A UAWBC) Urinalysis (test code = 0-3 HPF 0-3 UASQUAM) Urinalysis (test code = None Seen HPF None Seen UABAC) Urinalysis (test code = 1+ HPF None Seen A UAYEASTBU) Urinalysis (test code = 1+ HPF None Seen A UAAMOR) Urine Source: Urine [id number] 16:18:00 Test Item Value Reference Range Interpretation Comments Chemistry (test 141 mmol/L 136-145 N code = NA-T) Chemistry (test 4.2 mmol/L 3.5-5.1 N code = K-T) Chemistry (test 107 mmol/L 98-107 N code = CL) Chemistry (test 23 mmol/L 22-29 N code = CO2) Chemistry (test 15 mmol/L 10-20 N code = ANGP) Chemistry (test 15 mg/dL 8.9-20.6 N code = BUN) Chemistry (test 0.90 mg/dL 0.7-1.3 N code = CREATT) Chemistry (test Greater than 90 Referenc e Range for code = EGFRMDRD) Estimated G FR: Gre ater than 90 mL/min/ 1.73 m2NOTE:The MDRD equation has no t been validated for use with theeld erly (over 70 years of age), women, patients with serious comorbi d condition or pe rsons with extremes o fbody size, muscle ma ss, or nutritional status. Chemistry (test 96 mg/dL 70-105 N code = GLU-T) Chemistry (test 9.1 mg/dL 7.8-10.44 N code = CA) [id number] 16:05:00 Test Item Value Reference Range Interpretation Comments Hematology (test code = WBCT) 9.8 thou/uL 4.8-10.8 N Hematology (test code = RBCT) 5.13 mill/uL 4.70-6.10 N Hematology (test code = HGBT) 14.1 g/dL 14.0-18.0 N Hematology (test code = HCTT) 45.6 % 42.0-52.0 N Hematology (test code = MCV) 89.0 fL 78.0-98.0 N Hematology (test code = MCH) 27.5 pg 27.0-31.0 N Hematology (test code = MCHC) 30.9 g/dL 32.0-36.0 L Hematology (test code = RDW) 12.9 % 11.5-14.5 N Hematology (test code = PLTT) 301 thou/uL 130-400 N Hematology (test code = MPV) 8.7 fL 7.4-10.4 N Hematology (test code = %NEUT) 61.3 % 42.0-75.0 N Hematology (test code = %LYMPH) 24.9 % 21.0-51.0 N Hematology (test code = %MONO) 6.8 % 0.0-10.0 N Hematology (test code = %EOS) 6.7 % 0.0-10.0 N Hematology (test code = %BASO) 0.4 % 0.0-1.0 N Hematology (test code = NEUT#) 6.0 thou/uL 1.40-6.50 N Hematology (test code = LYMPH#) 2.5 thou/uL 1.20-3.40 N Hematology (test code = MONO#) 0.7 thou/uL 0.11-0.59 H Hematology (test code = EOS#) 0.7 thou/uL 0.0-0.7 N Hematology (test code = BASO#) 0.0 thou/uL 0.0-0.[address] Stone Protocol [facility] : 1990 Sex: MARON [facility] Pt Name: OUMAR BRADLEY [address] [facility] Phys: [place] [address] : 1990 Age: 29 SEX:M [phone] Exam Date: 12/03/20 Status: REG ER Acct: [id number] Loc: [facility] Pt Unit #: [id number] Report #: [id number] CC: MICHAEL VALVERDE MD CAT SCAN REPORT Order # Category/Exam [id number] CT/CT Stone Protocol ([id number]): . Results CT of abdomen and pelvis: 12/03/2020 COMPARISON: None HISTORY: Left-sided flank pain TECHNIQUE: Axial CT imaging at 5 mm intervals from lung bases through pubic symphysis without contrast. Coronal reformatted imaging obtained. FINDINGS: Lack of contrast media limits assessment of the viscera, bowel, vascular structures, and for lymphadenopathy. The imaged lung bases are unremarkable. No free intraperitoneal air or fluid is noted. The hepatic parenchyma is diffusely hypodense, evidence of steatosis. The spleen, pancreas, gallbladder, and adrenal glands appear grossly unremarkable. No evidence for hydronephrosis or nephrolithiasis noted on the right. There is hydronephrosis and proximal hydroureter on the left. T his is secondary to a stone within the proximal left ureter on axial image 44 measuring 3 mm. This is at the axial level of the L2-3 disc interspace. No additional stone noted within the left ureter. Limited assessment of the bowel demonstrates no evidence for focal inflammatory change or bowel obstruction. Linear density in the region of the cecal apex suggests prior appendectomy. No acute osseous abnormality is evident. IMPRESSION: Obstructive uropathy on the left secondary to a 3 mm stone within the proximal left ureter.. Reported By: Rickie Christine MD Electronically Signed Date/Time: 12/03/201709 Technologist: Dictated Date/Time: 12/03/20 1706 Transcribed Date/Time:"
[2021-06-30 09:56] LABS: Absolute Lymphocytes (CBC) 2.4 K/uL (0.7-4.9); Hematocrit 46.9 % (39.6-49.0); Lymphocytes % 28.6 % (15.3-44.8); MPV 8.8 fL (7.6-11.3)
--- NOTE | 2021-06-30 10:04 | RAD REPORT ---
EXAM DESCRIPTION: RAD - Chest Single View - 06/30/2021 9:59 am CLINICAL HISTORY: PALPITATIONS COMPARISON: No comparisons FINDINGS: Lines: None. Lungs: No evidence of edema or pneumonia. Pleural: No significant pleural effusions or pneumothorax. Cardiac: The heart size is within normal limits. Bones: No acute fractures. Other: IMPRESSION: No acute cardiopulmonary disease.
[2021-06-30 10:13] LABS: Potassium 4.5 mmol/L (3.5-5.1)
[2021-06-30 10:45] LABS: Troponin High Sensitivity 118.7 pg/mL (<58.9)
--- NOTE | 2021-06-30 11:09 | EDPHYS ---
Physician Documentation [facility] Name: Lio Camacho Age: 30 yrs Sex: Male : 1990 Arrival Date: 06/30/2021 Time: 09:08 Bed 19 Private MD: ED Physician Darron Liz HPI: 06/30 09:16 This 30 yrs old Male presents to ER via Unassigned with complaints of ms3 Palpitations. 09:16 The patient presents with a history of irregular heart beat. Context: The symptoms ms3 occur at rest. Onset: The symptoms/episode began/occurred this morning. Duration: The patient or guardian reports multiple episodes, that are intermittent. Modifying factors: The symptoms are aggravated by nothing. The symptoms are alleviated by nothing. Associated signs and symptoms: Pertinent negatives: chest pain, cough, SOB, vomiting. Severity of symptoms: At their worst the symptoms were moderate in the emergency department the symptoms are unchanged Pain is currently a 0 / 10. Historical: - Allergies: 09:33 No Known Allergies; iw - Immunization history:: Adult Immunizations unknown. - Social history:: Smoking status: Patient denies any tobacco usage or history of. ROS: 09:16 Constitutional: Negative for fever, and chills. Eyes: Negative for injury, pain, ms3 redness, and discharge, ENT: Negative for injury, pain, and discharge, Neck: Negative for injury, pain, and swelling, Respiratory: Negative for shortness of breath, cough, wheezing, and pleuritic chest pain, Abdomen/GI: Negative for abdominal pain, nausea, vomiting, diarrhea, and constipation, Skin: Negative for injury, rash, and discoloration, Neuro: Negative for headache, weakness, numbness, tingling. 09:16 Cardiovascular: Positive for palpitations, Negative for chest pain. 09:16 All other systems are negative. Exam: 09:16 Constitutional: This is a well developed, well nourished patient who is awake, alert, ms3 and in no acute distress. Head/Face: Normocephalic, atraumatic. ENT: Nares patent. No nasal discharge, no septal abnormalities noted. Tympanic membranes are normal and external auditory canals are clear. Oropharynx with no redness, swelling, or masses, exudates, or evidence of obstruction, uvula midline. Mucous membranes moist. Neck: Trachea midline, no cervical lymphadenopathy. Supple, full range of motion without nuchal rigidity, or vertebral point tenderness. No Meningismus. Chest/axilla: Normal chest wall appearance and motion. Nontender with no deformity. Cardiovascular: Regular rate and rhythm with a normal S1 and S2. No gallops, murmurs, or rubs. Normal PMI, no JVD. No pulse deficits. Respiratory: Lungs have equal breath sounds bilaterally, clear to auscultation and percussion. No rales, rhonchi or wheezes noted. No increased work of breathing, no retractions or nasal flaring. Abdomen/GI: Soft, non-tender, with normal bowel sounds. No distension or tympany. No guarding or rebound. No evidence of tenderness throughout. Skin: Warm, dry with normal turgor. Normal color with no rashes, no lesions, and no evidence of cellulitis. Psych: Awake, alert, with orientation to person, place and time. Behavior, mood, and affect are within normal limits. 09:35 ECG was reviewed by the Attending Physician. ms3 Vital Signs: 09:33 BP 135 / 86; Pulse 89; Resp 16; Temp 98.2(TE); Pulse Ox 99% on R/A; iw 12:27 BP 125 / 98; Pulse 77; Resp 21; Pulse Ox 98% on R/A; ph 13:30 BP 122 / 60; Pulse 65; Resp 16; Pulse Ox 98% on R/A; ph 14:30 BP 138 / 74; Pulse 81; Resp 16; Pulse Ox 99% on R/A; ph 15:21 BP 138 / 94; Pulse 74; Resp 18; Pulse Ox 100% on R/A; ph 16:30 BP 123 / 74; Pulse 74; Resp 18; Pulse Ox 99% on R/A; ph 17:38 BP 123 / 74; Pulse 66; Resp 16; Pulse Ox 99% on R/A; ph MDM: 09:16 Differential diagnosis: arrythmia, dehydration, PVCs. ms3 10:53 Patient medically screened. ms3 11:05 Data reviewed: vital signs, nurses notes, lab test result(s), radiologic studies. Data ms3 interpreted: court recording monitor: Pulse oximetry: on room air is 99 %. Interpretation: normal. Counseling: I had a detailed discussion with the patient and/or guardian regarding: the historical points, exam findings, and any diagnostic results supporting the discharge/admit diagnosis, lab results, radiology results, the need for further work-up and treatment in the hospital. ED course: Discussed case with Dr Horne and he accepts patient as observation. All questions answered. Discussed plan with patient and he understands/ agrees with plan. Patient remains in stable condition in the ED.. 06/30 09:16 Order name: Basic Metabolic Panel; Complete Time: 10:53 ms3 06/30 09:16 Order name: CBC with Diff; Complete Time: 10:53 ms3 06/30 09:16 Order name: Troponin HS; Complete Time: 10:53 ms3 06/30 11:09 Order name: COVID-19 SARS RT PCR (Document "Date of Onset" if Symptomatic); Complete ms3 Time: 12:49 06/30 13:10 Order name: T4 Free EDMO 06/30 13:10 Order name: Thyroid Stimulating Hormone EDMO 06/30 13:10 Order name: Basic Metabolic Panel EDMO 06/30 13:10 Order name: Basic Metabolic Panel EDMO 06/30 13:10 Order name: Lipid Profile EDMO 06/30 13:10 Order name: Lipid Profile EDMO 06/30 13:10 Order name: Magnesium EDMO 06/30 13:10 Order name: Magnesium EDMO 06/30 09:16 Order name: XRAY Chest (1 view); Complete Time: 10:53 ms3 06/30 09:16 Order name: EKG; Complete Time: 09:16 ms3 06/30 09:16 Order name: Cardiac monitoring; Complete Time: 11:48 ms3 06/30 09:16 Order name: EKG - Nurse/Tech; Complete Time: 09:46 ms3 06/30 09:16 Order name: IV Saline Lock; Complete Time: 09:46 ms3 06/30 09:16 Order name: Labs collected and sent; Complete Time: 10:50 ms3 06/30 09:16 Order name: O2 Per Protocol; Complete Time: 11:12 ms3 06/30 09:16 Order name: O2 Sat Monitoring; Complete Time: 11:12 ms3 06/30 09:23 Order name: EKG; Complete Time: 09:23 ms3 06/30 13:10 Order name: Regular EDMS 06/30 13:11 Order name: Echo without Doppler (2D) EDMS 06/30 15:08 Order name: Troponin High Sensitivity EDMS EC:35 Rate is 79 beats/min. Rhythm is regular. QRS [place] is Normal. MD interval is normal. ms3 Clinical impression: Normal ECG. Interpreted by me. Administered Medications: 11:48 Drug: Aspirin 324 mg Route: PO; ph 12:00 Follow up: Response: No adverse reaction ph Disposition Summary: 06/30/21 11:09 Hospitalization Ordered Hospitalization Status: Observation ms3 Provider: Gaetano Chester ms3 Condition: Stable ms3 Problem: new ms3 Symptoms: are unchanged ms3 Bed/Room Type: Standard ms3 Location: Telemetry/MedSurg (observation)(06/30/21 17:44) iw Room Assignment: 222(06/30/21 17:44) Diagnosis - Elevated troponin ms3 - Palpitations ms3 Forms: - Medication Reconciliation Form ms3 - SBAR form ms3 Signatures: Dispatcher [employer] EDMS Juana Reyes RN RN Beatris Brothers RN RN Monica Beltre RN RN Sanford Yanez RN RN Darron Beebe DO DO ms3 Corrections: (The following items were deleted from the chart) 09:23 09:23 Accucheck ordered. ms3 ms3 09:23 09:23 Cardiac monitoring ordered. ms3 ms3 09:23 09:23 EKG - Nurse/Tech ordered. ms3 ms3 09:24 09:23 IV Saline Lock ordered. ms3 ms3 09:24 09:23 Labs collected and sent ordered. ms3 ms3 09:24 09:23 NPO ordered. ms3 ms3 09:24 09:23 Oxygen Per Protocol ordered. ms3 ms3 09:24 09:23 O2 Sat Monitoring ordered. ms3 ms3 17:20 11:09 Telemetry/MedSurg (observation) ms3 ss 17:20 11:09 ms3 ss 17:44 17:20 [facility] ER HOLD ss 1 17:44 17:20 ERHOLD- ss ja1 17:44 17:44 Telemetry/MedSurg (observation) ja1 iw 17:44 17:44 222 [facility]
--- NOTE | 2021-06-30 11:09 | ER ---
Nurse's Notes [facility] Name: Lio Camacho Age: 30 yrs Sex: Male : 1990 Arrival Date: 06/30/2021 Time: 09:08 Bed 19 Private MD: Diagnosis: Elevated troponin;Palpitations Presentation: 06/30 09:25 Chief complaint: Patient states: palpitations since yesterday , no chest pain , no no iw SOB, seen by Dr. Bates. Coronavirus screen: At this time, the client does not indicate any symptoms associated with coronavirus-19. Ebola Screen: Patient negative for fever greater than or equal to 101.5 degrees Fahrenheit, and additional compatible Ebola Virus Disease symptoms Patient denies exposure to infectious person. Patient denies travel to an Ebola-affected area in the 21 days before illness onset. No symptoms or risks identified at this time. Initial Sepsis Screen: Does the patient meet any 2 criteria? No. Patient's initial sepsis screen is negative. Does the patient have a suspected source of infection? No. Patient's initial sepsis screen is negative. Risk Assessment: Do you want to hurt yourself or someone else? Patient reports no desire to harm self or others. Onset of symptoms was June 29, 2021. 09:25 Method Of Arrival: Ambulatory iw 09:25 Acuity: MARTHA 3 iw Historical: - Allergies: 09:33 No Known Allergies; iw - Immunization history:: Adult Immunizations unknown. - Social history:: Smoking status: Patient denies any tobacco usage or history of. Screenin:50 Abuse screen: Denies threats or abuse. Denies injuries from another. Nutritional ph screening: No deficits noted. Tuberculosis screening: No symptoms or risk factors identified. Fall Risk None identified. Assessment: 11:15 General: Appears in no apparent distress. comfortable, well groomed, Behavior is ph cooperative, appropriate for age, anxious, Denies fever, feeling ill. Pain: Denies pain. Neuro: Level of Consciousness is awake, alert, obeys commands, Oriented to person, place, time, situation. Cardiovascular: Reports palpitations, Denies chest pain, fatigue, nausea, shortness of breath, Capillary refill < 3 seconds in bilateral fingers Patient's skin is warm and dry. Respiratory: Airway is patent Respiratory effort is even, unlabored, Respiratory pattern is regular, symmetrical. GI: No signs and/or symptoms were reported involving the gastrointestinal system. Derm: Skin is intact, is healthy with good turgor, Skin is pink, warm \\T\\ dry. Musculoskeletal: Circulation, motion, and sensation intact. Range of motion: intact in all extremities. 12:32 Reassessment: Patient appears in no apparent distress at this time. Patient and/or ph family updated on plan of care and expected duration. Pain level reassessed. Patient is alert, oriented x 3, equal unlabored respirations, skin warm/dry/pink. 14:00 Reassessment: Patient appears in no apparent distress at this time. Patient and/or ph family updated on plan of care and expected duration. Pain level reassessed. Patient is alert, oriented x 3, equal unlabored respirations, skin warm/dry/pink. 15:00 Reassessment: Patient appears in no apparent distress at this time. Patient and/or ph family updated on plan of care and expected duration. Pain level reassessed. Patient is alert, oriented x 3, equal unlabored respirations, skin warm/dry/pink. 16:30 Reassessment: Patient appears in no apparent distress at this time. Patient and/or ph family updated on plan of care and expected duration. Pain level reassessed. Patient is alert, oriented x 3, equal unlabored respirations, skin warm/dry/pink. 17:37 Reassessment: Patient appears in no apparent distress at this time. Patient and/or ph family updated on plan of care and expected duration. Pain level reassessed. Patient is alert, oriented x 3, equal unlabored respirations, skin warm/dry/pink. Vital Signs: 09:33 BP 135 / 86; Pulse 89; Resp 16; Temp 98.2(TE); Pulse Ox 99% on R/A; iw 12:27 BP 125 / 98; Pulse 77; Resp 21; Pulse Ox 98% on R/A; ph 13:30 BP 122 / 60; Pulse 65; Resp 16; Pulse Ox 98% on R/A; ph 14:30 BP 138 / 74; Pulse 81; Resp 16; Pulse Ox 99% on R/A; ph 15:21 BP 138 / 94; Pulse 74; Resp 18; Pulse Ox 100% on R/A; ph 16:30 BP 123 / 74; Pulse 74; Resp 18; Pulse Ox 99% on R/A; ph 17:38 BP 123 / 74; Pulse 66; Resp 16; Pulse Ox 99% on R/A; ph Vitals: 12:27 Cardiac Rhythm Assessment Sinus rhythm Other frequent SV premature beats. ph ED Course: 09:08 Patient arrived in ED. mr 09:11 Darron Liz DO is Attending Physician. ms3 09:27 Triage completed. iw 09:33 Arm band placed on. iw 09:45 Inserted saline lock: 20 gauge in right antecubital area, using aseptic technique. mb7 Blood collected. 09:45 EKG done, by ED staff, reviewed by Darron Liz DO. mb7 09:47 Basic Metabolic Panel Sent. mb7 09:47 CBC with Diff Sent. mb7 09:47 Troponin HS Sent. mb7 09:59 XRAY Chest (1 view) In Process Unspecified. EDMS 10:49 Monica Beltre, RN is Primary Nurse. ph 10:50 Patient has correct armband on for positive identification. Bed in low position. Call ph light in reach. Side rails up X 1. 11:08 Gaetano Chester MD is Hospitalizing Provider. ms3 11:19 COVID-19 SARS RT PCR (Document "Date of Onset" if Symptomatic) Sent. mb7 Administered Medications: 11:48 Drug: Aspirin 324 mg Route: PO; ph 12:00 Follow up: Response: No adverse reaction ph Medication: 10:50 VIS not applicable for this client. ph Outcome: 11:09 Decision to Hospitalize by Provider. ms3 18:55 Patient left the ED. ld1 Signatures: Dispatcher [employer] PENNIENY Lyubov Harding mr Juana Reyes RN RN Monica Beltre, RN RN Darron Liz DO DO ms3 Kendal Schneider RN RN ld1 Lyubov Harrell mb7 Corrections: (The following items were deleted from the chart) 10:51 09:33 BP 135 / 86; Pulse 89bpm; Resp 16bpm; Pulse Ox 99% RA; iw iw
[2021-06-30] MEDS ORDERED: ASPIRIN 81 MG CHEWABLE TABLET ONE (11:34)
[2021-06-30] MEDS ORDERED: ONDANSETRON 4 MG/2 ML VIAL IV PRN (13:06)
--- NOTE | 2021-06-30 14:09 | P.HP ---
Certification for Inpatient Patient admitted to: Observation With expected LOS: <2 Midnights Practitioner: I am a practitioner with admitting privileges, knowledge of patient current condition, hospital course, and medical plan of care. Services: Services provided to patient in accordance with Admission requirements found in Title 42 Section 412.3 of the Code of Federal Regulations Patient History Date of Service: 06/30/21 Reason for admission: STEMI, palpitations. History of Present Illness: 30-year-old male patient with no significant medical history who was evaluated in ER for episode of feeling palpitations. He reports that this has been going on for approximately a month where he feels fluttering in the chest region. He denied any episode of chest pain, shortness of breath, feeling of impending sense of doom with episode. No issue with exertion. He has no cough, fever, chills. Initial work-up in ER revealed elevated troponin of 113 and he had some tachycardia episode EKG was not overtly abnormal. He was admitted for suspicion of possible tachycardia syndrome to rule out cardiac pathology. Allergies No Known Allergies Allergy (Unverified 06/30/21 13:30) Review of Systems General: Weakness Eyes: Unremarkable ENT: Unremarkable Respiratory: Unremarkable Cardiovascular: Palpitations Gastrointestinal: Unremarkable Genitourinary: Unremarkable Musculoskeletal: Unremarkable Integumentary: Unremarkable Physical Examination - Physical Exam General: Alert, Oriented x3 HEENT: Atraumatic, Normocephalic Neck: Supple Respiratory: Normal air movement Cardiovascular: Regular rate/rhythm, Normal S1 S2 Gastrointestinal: Soft and benign Musculoskeletal: No swelling Neurological: Normal speech, Normal strength at 5/5 x4 extr - Studies Laboratory Data (last 24 hrs) 06/30/21 09:43: WBC 8.3, Hgb 15.3, Hct 46.9, Plt Count 326 06/30/21 09:43: Sodium 142, Potassium 4.5, BUN 12, Creatinine 1.03, Glucose 112 H 06/30/21 09:23: WBC Cancelled, Hgb Cancelled, Hct Cancelled, Plt Count Cancelled 06/30/21 09:23: Sodium Cancelled, Potassium Cancelled, BUN Cancelled, Creatinine Cancelled, Glucose Cancelled Assessment and Plan - Plan Palpitations: Episodes of palpitation is concerning. Patient does not have significant weight loss symptoms however because of presentation will obtain UDS. We will check for TSH and free T4. We will do echocardiogram to assess cardiac function and size and also put patient on telemetry. We we will start metoprolol for rate control and monitor electrolytes profile closely. Also obtain lipid panel as further evaluation. We will trend troponin as initial troponin was slightly concerning. We will have cardiology evaluate patient as needed. Prophylaxis: Lovenox for DVT prophylaxis. CODE STATUS: Full code. Disposition: We expect to discharge him in the next 24 to 48 hours. - Advance Directives Does patient have a Living Will: No Does patient have a Durable POA for Healthcare: No
[2021-06-30] MEDS ORDERED: METOPROLOL TAR 25 MG TAB ONE (17:05)
[2021-06-30] MEDS: METOPROLOL TAR 25 MG TAB PO SCH (18:00)
[2021-06-30 20:43] VITALS: BMI 37.8
[2021-06-30 22:39] VITALS: O2SAT 99
[2021-06-30] MEDS ORDERED: ALPRAZOLAM 0.25 MG TABLET PO ONE (23:57)
[2021-07-01] MEDS: METOPROLOL TAR 25 MG TAB PO SCH (06:02)
[2021-07-01 06:06] LABS: Magnesium 2.6 mg/dL (1.8-2.4); Potassium 3.9 mmol/L (3.5-5.1)
[2021-07-01] MEDS ORDERED: ENOXAPARIN 40 MG/0.4 ML SQ SCH (09:00)
[2021-07-01] MEDS ORDERED: POTASSIUM CL SA 10 MEQ TAB PO ONE (09:00)
[2021-07-01 09:30] VITALS: BP 139/72; TEMP 97.8
--- NOTE | 2021-07-01 09:50 | P.DS ---
Admission Date: 07/01/21 Discharge Date: 07/01/21 Disposition: ROUTINE DISCHARGE Discharge Condition: GOOD Reason for Admission: STEMI, palpitations. Brief History of Present Illness: 30-year-old male patient with no significant medical history who was evaluated in ER for episode of feeling palpitations. He reports that this has been going on for approximately a month where he feels fluttering in the chest region. He denied any episode of chest pain, shortness of breath, feeling of impending sense of doom with episode. No issue with exertion. He has no cough, fever, chills. Initial work-up in ER revealed elevated troponin of 113 and he had some tachycardia episode EKG was not overtly abnormal. He was admitted for suspicion of possible tachycardia syndrome to rule out cardiac pathology. Hospital Course: he was on telemetry and he was noted to have 2 episodes of tachycardia over 100. No repeat episode of chest pain or overt feeling of impending sense of doom reported. his heart rate was stable at about 60-80 bpm. He was deemed stable for discharge today to follow-up with cardiology on outpatient. Metoprolol XL 25mg started for management. Vital Signs/Physical Exam: Temp Pulse Resp BP Pulse Ox 97.8 F 61 18 139/72 98 07/01/21 08:00 07/01/21 08:00 07/01/21 08:00 07/01/21 08:00 07/01/21 08:00 General: Alert, Oriented x3 HEENT: Atraumatic, Normocephalic Neck: Supple Respiratory: Normal air movement Cardiovascular: Regular rate/rhythm, Normal S1 S2 Gastrointestinal: Soft and benign Musculoskeletal: No swelling Neurological: Normal speech, Normal strength at 5/5 x4 extr Laboratory Data at Discharge: WBC 8.3 K/uL (4.3-10.9) 06/30/21 09:43 Hgb 15.3 g/dL (13.6-17.9) 06/30/21 09:43 Hct 46.9 % (39.6-49.0) 06/30/21 09:43 Plt Count 326 K/uL (152-406) 06/30/21 09:43 Sodium 139 mmol/L (136-145) 07/01/21 05:32 Potassium 3.9 mmol/L (3.5-5.1) 07/01/21 05:32 BUN 12 mg/dL (7-18) 07/01/21 05:32 Creatinine 1.00 mg/dL (0.55-1.3) 07/01/21 05:32 Glucose 95 mg/dL (74-106) 07/01/21 05:32 Magnesium 2.6 mg/dL (1.8-2.4) H 07/01/21 05:32 Triglycerides 172 mg/dL (<150) H 07/01/21 05:32 Cholesterol 200 mg/dL (<200) 07/01/21 05:32 HDL Cholesterol 28 mg/dL (40-60) L 07/01/21 05:32 Cholesterol/HDL Ratio 7.14 07/01/21 05:32 Home Medications: Metoprolol Tartrate [Lopressor*] 25 mg PO DAILY 30 Days #30 tab 07/01/21 New Medications: Metoprolol Tartrate [Lopressor*] 25 mg PO DAILY 30 Days #30 tab Diet: Regular Followup: Ryan Vega MD [ACTIVE - CAN ADMIT] -
--- NOTE | 2021-07-01 13:43 | ECHO ---
HEIGHT: 5 ft 10 in WEIGHT: 264 lb 0 oz DATE OF STUDY: 07/01/[address]: Gaetano Chester MD 2-DIMENSIONAL: YES M.MODE: YES DOPPLER: YES COLOR FLOW: YES TDS: NO PORTABLE: YES DEFINITY: NO BUBBLE STUDY: NO DIAGNOSIS: TACHYCARDIA, NSTEMI CARDIAC HISTORY: CATHERIZATION: NO SURGERY: NO PROSTHETIC VALVE: NO PACEMAKER: NO MEASUREMENTS (cm) DIASTOLIC (NORMALS) SYSTOLIC (NORMALS) IVSd 1.0 (0.6-1.2) LA Diam 3.1 (1.9-4.0) LVEF 56% LVIDd 4.1 (3.5-5.7) LVIDs 2.9 (2.0-3.5) %FS 29% LVPWd 1.1 (0.6-1.2) Ao Diam 2.6 (2.0-3.7) 2 DIMENSIONAL ASSESSMENT: RIGHT ATRIUM: NORMAL LEFT ATRIUM: NORMAL RIGHT VENTRICLE: NORMAL LEFT VENTRICLE: NORMAL TRICUSPID VALVE: NORMAL MITRAL VALVE: NORMAL PULMONIC VALVE: NORMAL AORTIC VALVE: NORMAL PERICARDIAL EFFUSION: NONE AORTIC ROOT: NORMAL LEFT VENTRICULAR WALL MOTION: NORMAL. DOPPLER/COLOR FLOW: MILD TRICUSPID REGURGITATION, TRACE OF MITRAL REGURGITATION. COMMENTS: NORMAL LEFT VENTRICULAR EJECTION FRACTION 55-60%. NORMAL WALL MOTION. NORMAL DIASTOLIC FUNCTION. MILD TRICUSPID REGURGITATION, TRACE OF MITRAL REGURGITATION. TECHNOLOGIST: MARIANO MCKEON
--- NOTE | 2021-07-02 14:54 | EKG ---
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
== END 2021-07-01 11:00 | disposition home or self-care (01) | DRG 310 ==
LOC: ER 09:05 → ERHOLD 13:27 → 2ND 18:25 → OBSVTOIN 07-01 08:05
PROVIDERS: ADMIT Internal Medicine Nephrology; ATTEND Internal Medicine Nephrology
DX: R00.2 Palpitations (principal); R00.0 Tachycardia, unspecified; Z20.822 Contact with and (suspected) exposure to COVID-19
CPT/HCPCS: 36415; 71045; 80048; 80061; 83735; 84484; 85025; 93005; 93306; 99284; G0378; J1650; U0003

== ENCOUNTER 2022-07-29 09:59 | Observation (INO) | payer SELFPAY ==
--- OUTSIDE RECORDS SUMMARY | 2022-07-29 10:05 | XMS REPORT | Continuity of Care Document ---
:[address] [facility] t Address [address] [place] [address] [place] [id number] Care Team Providers Name Role Phone No , Pcp Primary Care Physician Unavailable EL GONZALEZ Attending Clinician Unavailable El Dyson Attending Clinician Regla CHOWDHURY Attending Clinician Unavailable Regla Renee Attending Clinician Carter Cueto MD Attending Clinician Cora Wheat MD Attending Clinician Lyubov Blancas DO Attending Clinician Sanford Frazier NP Attending Clinician SANFORD FRAZIER Attending Clinician Unavailable Jeffrey Liz Attending Clinician Unavailable Deric Johnson Attending Clinician Unavailable Michael Valverde Attending Clinician Unavailable Toño Overton Attending Clinician Alexi Esquivel Attending Clinician Sathya Mao Attending Clinician SANFORD FRAZIER Admitting Clinician Unavailable Payers Payer Name Policy Type Policy Number Effective Date Expiration Date S john ALL SAVEBETTIE [id number] 2021 00:00:00 Problems Condition Condition Condition Status Onset Resolution Last Treating Co mments Source Name Details Category Date Date Treatment Clinician Date HIGH BLOOD HIGH Diagnosis Active 2017-04-03 Memoria PRESSURE BLOOD 213 21:52:00 l PRESSURE 00:00: Arthur Active 00 04/03/2017 [facility] DIZZY/ DIZZY/ Diagnosis Active 2015-09-23 Me moria NECK PAIN NECK PAIN 09-21 01:41:00 l Active 00:00: Arthur 09/22/2015 00 [facility] Morbid Morbid Problem Active 2019-10-26 Devyn mohamud obesity obesity 23:52:10 l (disorder) (disorder) He ann Active Problem 10/26/2019 [facility] No known No known Disease Unive rs active active ity of problems problems [facility] History of Past Illness Condition Condition Condition Status Onset Resolution Last Treating Co mments Source Name Details Category Date Date Treatment Clinician Date Discharge Discharge Problem 2015-09-26 2015-09-26 Memoria Diagnosis: Diagnosis: 09-22 02:43:05 02:43:05 l Headache Headache 05:00: Luis Enrique n 09/23/2015 6 [facility] Discharge Discharge Problem 2015-09-26 2015-09-26 Memoria Diagnosis: Diagnosis: 09-22 02:43:05 02:43:05 l Sprain of Sprain of 05:00: Herm fozia ligaments ligaments 00 of of cervical cervical spine, spine, initial initial encounter encounter 09/23/2015 09/26/2015 [facility] Allergies, Adverse Reactions, Alerts Allergy Allergy Status Severity Reaction(s) Onset Inactive Treating Comm ents Source Name Type Date Date Clinician No DA Active U 2020-[address] [facility] Alfredito Availabl Trejo e NO KNOWN Drug Active Univers ALLERGIE Class ity of S [facility] No Known No Known Active Memori a Medicati Medicati l on on Arthur Allergjustine Allergjustine s s Social History Social Habit Start Date Stop Date Quantity Comments Source Alcohol intake 2022-07-28 2022-07-28 University 00:00:00 00:00:00 [facility] Exposure to 2022-05-30 2022-06-09 Not sure [facility] SARS-CoV-2 00:00:00 10:59:00 [facility] (event) [place] Tobacco use and 2011-10-05 2011-10-05 Smokeless tobacco Un iversity of exposure 00:00:00 00:00:00 non-user [facility] Sex Ass[birth year] At [birth year] [facility] 00:00:00 00:00:00 Smoking Status Start Date Stop Date Source Tobacco smoking consumption unknown [facility] Social History [facility] Medications Ordered Filled Start Stop Current Ordering Indication Dosage Frequency Signature Comments Components Source Medication Medication Date Date Medication? Clinician (SIG) Name Name NaCl 0.9% 2022- No 1000mL at 999 Uni vers (NS) bolus 6-10 06-10 mL/hr, ity of infusion 00:00: 00:34 1,000 mL, [place] as 1,000 mL 00 :00 IV Medical Infusion, Branch ONCE, 1 dose, On Sun07/28/22 at 1900, PINKY metoprolol 2-0 Yes 25mg QD Take 25 mg U T tartrate 5-14 by mouth 1 Healt h (Lopressor) 00:00: (one) time 25 MG 00 each day. tablet metoprolol 2022-0 Yes 25mg QD Take 25 mg U T tartrate 5-14 by mouth 1 Healt h (Lopressor) 00:00: (one) time 25 MG 00 each day. tablet metoprolol 2022-0 Yes 25mg QD Take 25 mg U T tartrate 5-14 by mouth 1 Healt h (Lopressor) 00:00: (one) time 25 MG 00 each day. tablet metoprolol 2022-0 Yes 25mg QD Take 25 mg U T tartrate 5-14 by mouth 1 Healt h (Lopressor) 00:00: (one) time 25 MG 00 each day. tablet metoprolol 2022-0 Yes 25mg QD Take 25 mg U T succinate 5-10 by mouth 1 Heal th XL 00:00: (one) time (Toprol-XL) 00 each day. 25 MG 24 hr tablet metoprolol 2022-0 Yes 25mg QD Take 25 mg U T succinate 5-10 by mouth 1 Heal th XL 00:00: (one) time (Toprol-XL) 00 each day. 25 MG 24 hr tablet metoprolol 2022-0 Yes 25mg QD Take 25 mg U T succinate 5-10 by mouth 1 Heal th XL 00:00: (one) time (Toprol-XL) 00 each day. 25 MG 24 hr tablet metoprolol 2022-0 Yes 25mg QD Take 25 mg U T succinate 5-10 by mouth 1 Heal th XL 00:00: (one) time (Toprol-XL) 00 each day. 25 MG 24 hr tablet magnesium 2-0 2021- No 2g 2 g, IV Univ ers sulfate in 06-04 Piggyback, it y of water 2 21:00: 21:03 Administer [place] as gram/50 mL 00 :00 over 60 Medica l (4 %) Minutes, Branch infusion 2 ONCE, 1 g dose, On 06/04/21 at 1600, Routine carvediloL 2-0 2- No 12.5mg Take 12.5 Univers 12.5 mg 4-08 04-08 mg by ity of tablet 18:04: 00:00 mouth 2 [place] 09 :00 (two) Medical times Branch daily with meals. carvedilol 2022-0 Yes 12.5mg Take 12.5 UT (Coreg) 4-08 mg by Health 12.5 MG 00:00: mouth 2 tablet 00 (two) times a day with meals. carvedilol 2022-0 Yes 12.5mg Take 12.5 UT (Coreg) 4-08 mg by Health 12.5 MG 00:00: mouth 2 tablet 00 (two) times a day with meals. carvedilol 2022-0 Yes 12.5mg Take 12.5 UT (Coreg) 4-08 mg by Health 12.5 MG 00:00: mouth 2 tablet 00 (two) times a day with meals. carvedilol 2022-0 Yes 12.5mg Take 12.5 UT (Coreg) 4-08 mg by Health 12.5 MG 00:00: mouth 2 tablet 00 (two) times a day with meals. carvediloL 2021- No [id number] 12.5mg Take 1 Univers 12.5 mg 4-08 05-09 tablet by ity of tablet 00:00: 04:59 mouth 2 [place] 00 :00 (two) Medical times Branch daily with meals for 30 days. carvediloL 2021- No [id number] 12.5mg Take 1 Univers 12.5 mg 4-08 05-09 tablet by ity of tablet 00:00: 04:59 mouth 2 [place] 00 :00 (two) Medical times Branch daily with meals for 30 days. ketorolac 2020-02 Yes TAKE ONE UT (Toradol) 0-16 (1) Health 10 MG 00:00: TABLET(S) tablet 00 BY MOUTH EVERY SIX HOURS NEEDED FOR PAIN; DO NOT TAKE MORE THAN 4 TABLETS IN 24 HOURS. morphine 2020-02 Yes 15mg Take 15 mg UT (MSIR) 15 0-16 by mouth Health MG tablet 00:00: every 4 00 (four) hours if needed. ondansetron 2020-02 Yes DISSOLVE UT ODT 0-16 ONE (1) Health (Zofran-ODT 00:00: TABLET(S) ) 8 MG 00 BY MOUTH disintegrat EVERY SIX ing tablet HOURS NEEDED FOR NAUSEA/VOM ITING. ketorolac 2020-02 Yes TAKE ONE UT (Toradol) 0-16 (1) Health 10 MG 00:00: TABLET(S) tablet 00 BY MOUTH EVERY SIX HOURS NEEDED FOR PAIN; DO NOT TAKE MORE THAN 4 TABLETS IN 24 HOURS. morphine 2020-02 Yes 15mg Take 15 mg UT (MSIR) 15 0-16 by mouth Health MG tablet 00:00: every 4 00 (four) hours if needed. ondansetron 2020-02 Yes DISSOLVE UT ODT 0-16 ONE (1) Health (Zofran-ODT 00:00: TABLET(S) ) 8 MG 00 BY MOUTH disintegrat EVERY SIX ing tablet HOURS NEEDED FOR NAUSEA/VOM ITING. ketorolac 2020-02 Yes TAKE ONE UT (Toradol) 0-16 (1) Health 10 MG 00:00: TABLET(S) tablet 00 BY MOUTH EVERY SIX HOURS NEEDED FOR PAIN; DO NOT TAKE MORE THAN 4 TABLETS IN 24 HOURS. morphine 2020-02 Yes 15mg Take 15 mg UT (MSIR) 15 0-16 by mouth Health MG tablet 00:00: every 4 00 (four) hours if needed. ondansetron 2020-02 Yes DISSOLVE UT ODT 0-16 ONE (1) Health (Zofran-ODT 00:00: TABLET(S) ) 8 MG 00 BY MOUTH disintegrat EVERY SIX ing tablet HOURS NEEDED FOR NAUSEA/VOM ITING. ketorolac 2020-02 Yes TAKE ONE UT (Toradol) 0-16 (1) Health 10 MG 00:00: TABLET(S) tablet 00 BY MOUTH EVERY SIX HOURS NEEDED FOR PAIN; DO NOT TAKE MORE THAN 4 TABLETS IN 24 HOURS. morphine 2020-02 Yes 15mg Take 15 mg UT (MSIR) 15 0-16 by mouth Health MG tablet 00:00: every 4 00 (four) hours if needed. ondansetron 2020-02 Yes DISSOLVE UT ODT 0-16 ONE (1) Health (Zofran-ODT 00:00: TABLET(S) ) 8 MG 00 BY MOUTH disintegrat EVERY SIX ing tablet HOURS NEEDED FOR NAUSEA/VOM ITING. sertraline 2020-0 Yes 25 mg = 1 Me moria 25 mg oral 9-04 tab, PO, l tablet 19:58: Daily, # Arthur 00 30 tab, 1 Refill(s), Pharmacy: [id number], 180.34, cm, 10/24/19 14:30:00 CDT, Height, 125.727, kg, 10/24/19 14:30:00 CDT, Weight sertraline 2020-0 Yes 25 mg = 1 Me moria 25 mg oral 9-04 tab, PO, l tablet 19:58: Daily, # Arthur 00 30 tab, 1 Refill(s), Pharmacy: [id number], 180.34, cm, 10/24/19 14:30:00 CDT, Height, 125.727, kg, 10/24/19 14:30:00 CDT, Weight sertraline 2020-0 Yes 25 mg = 1 Me moria 25 mg oral 9-04 tab, PO, l tablet 19:58: Daily, # [place] 00 30 tab, 1 Refill(s), Pharmacy: [facility] #[id number], 180.34, cm, 10/24/19 14:30:00 CDT, Height, 125.727, kg, 10/24/19 14:30:00 CDT, Weight Ketorolac 2015-0 No 4 days Memor ia 8 l 05:03: MEDICATION Arthur WASTE Product Size: 30 mg Product Wasted: ___ mg Ketorolac No 4 days Memor ia 8 l 05:03: MEDICATION [place] WASTE Product Size: 30 mg Product Wasted: ___ mg Ketorolac No 4 days Memor ia 09-22 l 05:03: MEDICATION Arthur WASTE Product Size: 30 mg Product Wasted: ___ mg cetirizine 2009- Yes 10mg Take 1 Tab U nivers [...] for Branch Allergies and Runny nose. cetirizine 2009- Yes 10mg Take 1 Tab U nivers [...] 2009-11-05 Completed Universit y of Vaccine 00:00:00 [facility] Influenza Virus 2009-11-05 Completed Universit y of Vaccine 00:00:00 [facility] Influenza Virus 2009-11-05 Completed Universit y of Vaccine 00:00:00 [facility] Influenza Virus 2009-11-05 Completed Universit y of Vaccine 00:00:00 [facility] Influenza Virus 2008-12-29 Completed Universit y of Vaccine 00:00:00 [facility] Influenza Virus 2008-12-29 Completed Universit y of Vaccine 00:00:00 [facility] Influenza Virus 2008-12-29 Completed Universit y of Vaccine 00:00:00 [facility] Influenza Virus 2008-12-29 Completed Universit y of Vaccine 00:00:00 [facility] Meningococcal 2008-09-18 Completed University of Polysaccharide 00:00:00 [place] Medi radha (groups A, C, Y and Branc h W-135) conjugate vaccine (MCV4P) Varicella 2008-09-18 Completed University of (varivax)(chicken 00:00:00 [place] M edical pox) Branch Meningococcal 2008-09-18 Completed University of Polysaccharide 00:00:00 [place] Medi radha (groups A, C, Y and Branc h W-135) conjugate vaccine (MCV4P) Varicella 2008-09-18 Completed University of (varivax)(chicken 00:00:00 [place] M edical pox) Branch Meningococcal 2008-09-18 Completed University of Polysaccharide 00:00:00 [place] Med[facility] radha (groups A, C, Y and Branc h W-135) conjugate vaccine (MCV4P) Varicella 2008-09-18 Completed University of (varivax)(chicken 00:00:00 [place] M edical pox) Branch Meningococcal 2008-09-18 Completed University of Polysaccharide 00:00:00 [place] Medi radha (groups A, C, Y and Branc h W-135) conjugate vaccine (MCV4P) Varicella 2008-09-18 Completed University of (varivax)(chicken 00:00:00 [place] [facility] pox) Branch TDAP 2007-01-26 Completed University of 00:00:00 [facility] HEPATITIS A 2007-01-26 Completed University of 00:00:00 [facility] TDAP 2007-01-26 Completed University of 00:00:00 [facility] HEPATITIS A 2007-01-26 Completed University of 00:00:00 [facility] TDAP 2007-01-26 Completed University of 00:00:00 [facility] HEPATITIS A 2007-01-26 Completed University of 00:00:00 [facility] TDAP 2007-01-26 Completed University of 00:00:00 [facility] HEPATITIS A 2007-01-26 Completed University of 00:00:00 [facility] HEPATITIS A 2003-12-11 Completed University of 00:00:00 [facility] HEPATITIS A 2003-12-11 Completed University of 00:00:00 [facility] HEPATITIS A 2003-12-11 Completed University of 00:00:00 [facility] HEPATITIS A 2003-12-11 Completed University of 00:00:00 [facility] Varicella 1998-05-20 Completed University of (varivax)(chicken 00:00:00 [place] M edical pox) Branch Varicella 1998-05-20 Completed University of (varivax)(chicken 00:00:00 [facility] edical pox) Branch Varicella 1998-05-20 Completed University of (varivax)(chicken 00:00:00 [facility] edical pox) Branch Varicella 1998-05-20 Completed University of (varivax)(chicken 00:00:00 [facility] edical pox) Branch MMR 1996-12-16 Completed University of 00:00:00 [facility] Polio (IPV/OPV) 1996-12-16 Completed Universit y of 00:00:00 [facility] DTAP 1996-12-16 Completed University of 00:00:00 [facility] MMR 1996-12-16 Completed University of 00:00:00 [facility] Polio (IPV/OPV) 1996-12-16 Completed Universit y of 00:00:00 [facility] DTAP 1996-12-16 Completed University of 00:00:00 [facility] MMR 1996-12-16 Completed University of 00:00:00 [facility] Polio (IPV/OPV) 1996-12-16 Completed Universit y of 00:00:00 [facility] DTAP 1996-12-16 Completed University of 00:00:00 [facility] MMR 1996-12-16 Completed University of 00:00:00 [facility] Polio (IPV/OPV) 1996-12-16 Completed Universit y of 00:00:00 [facility] DTAP 1996-12-16 Completed University of 00:00:00 [facility] MMR 1994-04-10 Completed University of 00:00:00 [facility] DTAP 1994-04-10 Completed University of 00:00:00 [facility] HIB 4 Dose Schedule 1994-04-10 Completed Unive rsity of 00:00:00 [place] [facility] MMR 1994-04-10 Completed University of 00:00:00 [place] [facility] DTAP 1994-04-10 Completed University of 00:00:00 [facility] Branch HIB 4 Dose Schedule 1994-04-10 Completed Unive rsity of 00:00:00 [place] [facility] MMR 1994-04-10 Completed University of 00:00:00 [place] [facility] DTAP 1994-04-10 Completed University of 00:00:00 [facility] Branch HIB 4 Dose Schedule 1994-04-10 Completed Unive rsity of 00:00:00 [place] [facility] MMR 1994-04-10 Completed University of 00:00:00 [place] [facility] DTAP 1994-04-10 Completed University of 00:00:00 [facility] HIB 4 Dose Schedule 1994-04-10 Completed Unive rsity of 00:00:00 [facility] Hep B, Adol or Pedi 1993-07-13 Completed Unive rsity of Dosage 00:00:00 [facility] Polio (IPV/OPV) 1993-07-13 Completed Universit y of 00:00:00 [facility] Branch DTAP 1993-07-13 Completed University of 00:00:00 [facility] HIB 4 Dose Schedule 1993-07-13 Completed Unive rsity of 00:00:00 [facility] Branch Hep B, Adol or Pedi 1993-07-13 Completed Unive rsity of Dosage 00:00:00 [facility] Polio (IPV/OPV) 1993-07-13 Completed Universit y of 00:00:00 [facility] DTAP 1993-07-13 Completed University of 00:00:00 [facility] HIB 4 Dose Schedule 1993-07-13 Completed Unive rsity of 00:00:00 [facility] Branch Hep B, Adol or Pedi 1993-07-13 Completed Unive rsity of Dosage 00:00:00 [facility] Polio (IPV/OPV) 1993-07-13 Completed Universit y of 00:00:00 [facility] Branch DTAP 1993-07-13 Completed University of 00:00:00 [facility] HIB 4 Dose Schedule 1993-07-13 Completed Unive rsity of 00:00:00 [facility] Branch Hep B, Adol or Pedi 1993-07-13 Completed Unive rsity of Dosage 00:00:00 [facility] Polio (IPV/OPV) 1993-07-13 Completed Universit y of 00:00:00 [facility] DTAP 1993-07-13 Completed University of 00:00:00 [facility] HIB 4 Dose Schedule 1993-07-13 Completed Unive rsity of 00:00:00 [facility] Polio (IPV/OPV) 1993-05-03 Completed Universit y of 00:00:00 [facility] DTAP 1993-05-03 Completed University of 00:00:00 [facility] HIB 4 Dose Schedule 1993-05-03 Completed Unive rsity of 00:00:00 [facility] Polio (IPV/OPV) 1993-05-03 Completed Universit y of 00:00:00 [facility] DTAP 1993-05-03 Completed University of 00:00:00 [facility] HIB 4 Dose Schedule 1993-05-03 Completed Unive rsity of 00:00:00 [facility] Polio (IPV/OPV) 1993-05-03 Completed Universit y of 00:00:00 [facility] DTAP 1993-05-03 Completed University of 00:00:00 [facility] HIB 4 Dose Schedule 1993-05-03 Completed Unive rsity of 00:00:00 [facility] Polio (IPV/OPV) 1993-05-03 Completed Universit y of 00:00:00 [facility] DTAP 1993-05-03 Completed University of 00:00:00 [facility] HIB 4 Dose Schedule 1993-05-03 Completed Unive rsity of 00:00:00 [facility] Polio (IPV/OPV) 1993-02-21 Completed Universit y of 00:00:00 [facility] DTAP 1993-02-21 Completed University of 00:00:00 [facility] HIB 4 Dose Schedule 1993-02-21 Completed Unive rsity of 00:00:00 [facility] Polio (IPV/OPV) 1993-02-21 Completed Universit y of 00:00:00 [facility] DTAP 1993-02-21 Completed University of 00:00:00 [facility] HIB 4 Dose Schedule 1993-02-21 Completed Unive rsity of 00:00:00 [facility] Polio (IPV/OPV) 1993-02-21 Completed Universit y of 00:00:00 [facility] DTAP 1993-02-21 Completed University of 00:00:00 [facility] HIB 4 Dose Schedule 1993-02-21 Completed Unive rsity of 00:00:00 [facility] Polio (IPV/OPV) 1993-02-21 Completed Universit y of 00:00:00 [facility] Branch DTAP 1993-02-21 Completed University of 00:00:00 [facility] HIB 4 Dose Schedule 1993-02-21 Completed Unive rsity of 00:00:00 [facility] Branch Hep B, Adol or Pedi 1993-01-31 Completed Unive rsity of Dosage 00:00:00 [facility] Hep B, Adol or Pedi 1993-01-31 Completed Unive rsity of Dosage 00:00:00 [facility] Branch Hep B, Adol or Pedi 1993-01-31 Completed Unive rsity of Dosage 00:00:00 [facility] Hep B, Adol or Pedi 1993-01-31 Completed Unive rsity of Dosage 00:00:00 [facility] Branch Hep B, Adol or Pedi 1992 Completed Unive rsity of Dosage 00:00:00 [facility] Branch Hep B, Adol or Pedi 1992 Completed Unive rsity of Dosage 00:00:00 [facility] Hep B, Adol or Pedi 1990 Completed Unive rsity of Dosage 00:00:00 [facility] Hep B, Adol or Pedi 1992 Completed Unive rsity of Dosage 00:00:00 [facility] Vital Signs Vital Name Observation Time Observation Value Comments Source Systolic blood 2022-07-29 00:00:00 134 mm[Hg] Univer sity of pressure [facility] Diastolic blood 2022-07-29 00:00:00 72 mm[Hg] Unive rsity of pressure [facility] Heart rate 2022-07-29 00:00:00 84 [facility] Respiratory rate 2022-07-29 00:00:00 20 [facility] 2022-07-29 00:00:00 97 /min [facility] Arterial blood by [facility] Pulse oximetry Branch Body temperature 2022-07-28 23:02:00 37.11 Leda Univ ersity [facility] Body height 2022-07-28 23:02:00 180.3 cm [facility] [place] [facility] Body weight 2022-07-28 23:02:00 117.935 kg [facility]i [facility] [place] [facility] BMI 2022-07-28 23:02:00 36.26 kg/m2 [facility] [place] [facility] Systolic blood 2022-06-09 17:00:00 152 mm[Hg] Univer sity of pressure [place] [facility] Diastolic blood 2022-06-09 17:00:00 84 mm[Hg] Unive rsity of pressure [place] [facility] Heart rate 2022-06-09 17:00:00 75 /min [facility]i [facility] [place] [facility] Respiratory rate 2022-06-09 17:00:00 16 /min Univ ersity of [place] [facility] Oxygen saturation in 2022-06-09 17:00:00 98 /min University of Arterial blood by [place] [employer] Pulse oximetry Branch Body temperature 2022-06-09 16:00:00 37.39 Leda Univ ersity of [place] [facility] Body height 2022-06-09 16:00:00 177.8 cm [facility] [place] [facility] Body weight 2022-06-09 16:00:00 130.182 kg [facility] [place] [facility] BMI 2022-06-09 16:00:00 41.18 kg/m2 [facility] [place] [facility] Systolic blood 2021-06-04 21:00:00 134 mm[Hg] Univer sity of pressure [place] [facility] Diastolic blood 2021-06-04 21:00:00 74 mm[Hg] Unive rsity of pressure [place] [facility] Heart rate 2021-06-04 21:00:00 63 /min [facility] [place] [facility] Respiratory rate 2021-06-04 21:00:00 18 /min Univ ersity of [place] [facility] Oxygen saturation in 2021-06-04 21:00:00 98 /min University of Arterial blood by [employer] radha Pulse oximetry Branch Body temperature 2021-06-04 18:05:00 36.83 Leda Univ ersity of [place] [facility] Body height 2021-06-04 18:05:00 177.8 cm [facility] [place] [facility] Body weight 2021-06-04 18:05:00 124.739 kg [facility] [place] [facility] BMI 2021-06-04 18:05:00 39.46 kg/m2 [facility] Systolic blood 2021-05-27 23:00:00 150 mm[Hg] Univer sity of pressure [facility] Diastolic blood 2021-05-27 23:00:00 104 mm[Hg] Unive rsity of [facility] Heart rate 2021-05-27 23:00:00 75 /min [facility] Respiratory rate 2021-05-27 23:00:00 19 /min [facility] Oxygen saturation in 2021-05-27 23:00:00 98 /min [facility] Arterial blood by [facility] Pulse oximetry [place] Body temperature 2021-05-27 20:30:00 36.78 Leda [facility] Body weight 2021-05-27 20:30:00 124.739 kg [facility] Systolic (mm Hg) 2019-10-24 19:30:00 Devyn rial [place] Diastolic (mm Hg) 2019-10-24 19:30:00 Mem orial [place] Heart Rate 2019-10-24 19:30:00 [facility] Temperature Oral (F) 2019-10-24 19:30:00 98.0 F [facility] Height 2019-10-24 19:30:00 180.34 cm [facility] Weight 2019-10-24 19:30:00 [facility] BMI Calculated 2019-10-24 19:30:00 Memori al [place] Heart Rate 2015-09-23 06:45:00 [facility] [place] Respitory Rate 2015-09-23 06:45:00 Memori al [place] Systolic (mm Hg) 2015-09-23 06:45:00 Devyn rial [place] Diastolic (mm Hg) 2015-09-23 06:45:00 Mem orial [place] Systolic (mm Hg) 2015-09-23 01:42:00 Devyn rial [place] Diastolic (mm Hg) 2015-09-23 01:42:00 Mem orial [place] Temperature Oral (F) 2015-09-23 01:42:00 98.5 F [facility] Respitory Rate 2015-09-23 01:42:00 Memori al [place] Heart Rate 2015-09-23 01:42:00 [facility] Procedures Procedure Date / Time Performing Clinician Source Performed URINALYSIS 2022-07-29 00:36:00 El Gonzalez [facility] URINE DRUG (IMMUNOASSAY) 2022-07-29 00:36:00 El Gonzalez [facility] COMPREHENSIVE DRUG [facility] nch SCREEN W/O REFLEX PHOSPHORUS 2022-07-28 23:17:00 El Gonzalez [facility] LIPASE 2022-07-28 23:17:00 El Gonzalez [facility] TROPONIN I 2022-07-28 23:17:00 El Gonzalez [facility] FREE T4 2022-07-28 23:17:00 El Gonzalez [facility] THYROID STIMULATING 2022-07-28 23:17:00 El Gonzalez [facility] HORMONE [facility] COMP. METABOLIC PANEL 2022-07-28 23:17:00 El Gonzalez Un [facility] ([id number]) [facility] CBC WITH DIFF 2022-07-28 23:17:00 El Gonzalez [facility] D-DIMER 2022-07-28 23:17:00 El Gonzalez [facility] CONSENT/REFUSAL FOR 2022-07-28 22:58:21 [facility] Branch CONSENT/REFUSAL FOR 2022-06-09 15:51:47 [facility] Branch MAGNESIUM 2021-06-04 20:09:00 Regla Chowdhury [facility] TROPONIN I 2021-06-04 20:09:00 Regla Chowdhury [facility] COMP. METABOLIC PANEL 2021-06-04 20:09:00 Regla Chowdhury [facility] ([id number]) [facility] CBC WITH DIFF 2021-06-04 20:09:00 Regla Chowdhury [facility] CONSENT/REFUSAL FOR 2021-06-04 17:59:27 [facility] URINALYSIS 2021-05-27 21:38:00 Sanford Frazier [facility] URINE DRUG (IMMUNOASSAY) 2021-05-27 21:38:00 [facility] Medical Bra nch SCREEN W/O REFLEX XR CHEST 1 VW 2021-05-27 21:08:28 Sanford Frazier [facility] LIPASE 2021-05-27 21:03:00 Sanford Frazier [facility] TROPONIN I 2021-05-27 21:03:00 Sanford Frazier [facility] THYROID STIMULATING 2021-05-27 21:03:00 Sanford Frazier [facility] HORMONE [facility] COMP. METABOLIC PANEL 2021-05-27 21:03:00 [id number] CBC WITH DIFF 2021-05-27 21:03:00 Sanford Frazier [facility] N-TERMINAL PRO-BNP 2021-05-27 21:03:00 [facility] HB ECG ROUTINE & RHYTHM 2021-05-27 20:54:36 Sanford Frazier [facility] NOTICE OF PRIVACY 2021-05-27 20:24:14 Doctor Unassigned, No [facility] PRACTICES Name [facility] CONSENT/REFUSAL FOR 2021-05-27 20:21:45 Doctor Unassigned, [facility] Name [facility] Appendectomy [facility] Encounters Start End Encounter Admission Attending Care Care Encounter Source Date/Time Date/Time Type Type Clinicians Facility Department ID 2021-12-19 Outpatient IBNS IBNS [id number] [place] 18:04:27 [id number] Zhang 2021-03-22 Outpatient IBNS IBNS [id number] [place] 12:27:04 [id number] Zhang 2022-07-28 2022-07-28 Emergency X SHWETA GONZALEZ ERT [id number] Univers 18:04:00 20:52:00 EL beltran [facility] 2022-07-28 2022-07-28 Emergency Malcolmsean, [facility] 1.2.840.114 [id number] Univers 18:04:00 20:52:00 El ELISE 350.1.13.10 ity [facility] 4.2.7.2.686 [facility] [id number] [place] [id number] [place] 2022-06-09 2022-06-09 Emergency X Regla CHOWDHURY [facility] ERT [id number] Univers 11:01:00 13:04:00 ity [facility] 2022-06-09 2022-06-09 Emergency Regla Chowdhury [facility] 1.2.840.114 [id number] [facility] 11:01:00 13:04:00 Ashely ELISE 350.1.13.10 i ty [facility] 4.2.7.2.686 [facility] [phone] [address] 2021-08-25 2021-08-25 Telephone Carter Cueto [facility] 1.2.840.114 [id number] ID 00:00:00 00:00:00 [facility] 350.1.13.58 H ealth [place] 9.2.7.2.686 4 [id number] 1 2021-08-15 2021-08-15 Telephone Carter Cueto [facility] 1.2.840.114 1 [id number] ID 00:00:00 00:00:00 [facility] 350.1.13.58 H [facility]alth [place] 9.2.7.2.686 3 [id number] 4 2021-08-11 2021-08-11 Telephone Carter Cueto [facility] 1.2.840.114 1 [id number] ID 00:00:00 00:00:00 [facility] 350.1.13.58 H ealth [place] 9.2.7.2.686 4 [id number] 1 2021-08-08 2021-08-08 Telephone JOVITA Wheat 1.2.840.114 [id number] [place] 00:00:00 00:00:00 Cora PRITCHETTCO 350.1.13.58 He alth 9.2.7.2.686 [id number] 3 2021-07-07 2021-07-07 Telephone JOVITA Blancas 6400 1.2.840.114 1 [id number] ID 00:00:00 00:00:00 Lyubov VAUGHN 350.1.13.58 Health 9.2.7.2.686 [id number] 1 2021-06-04 2021-06-04 Emergency X Regla CHOWDHURY [facility] ERT [id number] Univers 13:06:00 16:37:00 ity [facility] 2021-06-04 2021-06-04 Emergency Regla Chowdhury [facility] 1.2.840.114 [id number] Univers 13:06:00 16:37:00 Ashely ELISE 350.1.13.10 i ty of [place] 4.2.7.2.686 [facility] [id number] [address] 2021-05-27 2021-05-27 Emergency [facility] 1.2.220.841 [id number] Univers 15:41:00 18:08:00 Sanford ELISE 350.1.13.10 ity [facility] 4.2.7.2.686 [facility] [id number] [address] 2021-05-27 2021-05-27 Emergency X [facility] ERT [id number] Univers 15:41:00 18:08:00 [facility] 2020-12-04 2020-12-04 Emergency ER Liz, STLSJX STLSJX [id number] STLSJX 09:41:00 09:41:00 Jeffrey -[id number] 2020-12-04 Emergency ER Johnson, STLSJG STLSJG [id number] 07:30:00 07:30:00 Deric -[id number] [facility] 2020-12-03 2020-12-03 Emergency ER Enmanuel, STLSJG STLSJG [id number] 15:32:00 18:00:00 Michael -[id number] [place] [address] 2019-12-12 2019-12-12 Outpatient MHIE MHIE [id number] [facility] 13:00:00 13:00:00 03 l [place] 2019-12-12 2019-12-12 Outpatient MHIE MHIE [id number] [facility]oria 13:00:00 13:00:00 03 l [place] 2019-10-24 2019-10-25 Outpatient nullFlavo [facility] [id number] Memoria 19:30:00 04:59:59 r Primary 02 l Care Anselmo Lara 2019-10-24 2019-10-25 Outpatient nullFlavo [facility] [id number] Memoria 19:30:00 04:59:59 r Primary 02 l Ramone Lara 2019-10-24 2019-10-24 Outpatient Tian MHMG [facility] [id number] 14:30:00 23:59:59 Toño 02 Jason 2019-10-24 2019-10-24 Outpatient MHIE MHIE [id number] Memoria 14:30:00 14:30:00 02 [facility] 2017-04-03 2017-04-04 Emergency nullFlavo [facility] [id number] Memoria 23:51:00 00:19:00 r [place] 01 [facility] 2017-04-03 2017-04-04 Emergency nullFlavo [facility] [id number] Memoria 23:51:00 00:19:00 r [place] 01 [facility] 2017-04-03 2017-04-03 Outpatient KAUR Esquivel [facility]PL [id number] 17:51:00 18:19:00 Alexi Sanchez 2015-09-23 2015-09-23 EC nullFlavo [facility] [id number] Memoria 01:02:00 06:54:00 Emergency r Arthur 00 l [facility] 2015-09-23 2015-09-23 EC nullFlavo [facility] [id number] Memoria 01:02:00 06:54:00 Emergency r [place] 00 l [facility] 2015-09-22 2015-09-23 Outpatient JOSE L MaoPL MHPL [id number] 20:02:00 01:54:00 Sathya Keating 00 Results Test Description Test Time Test Comments Results Result Comments Source D-DIMER 2022-07-29 00:43:19 Test Item Value Reference Range Interpretation Comme nts D-DIMER (test code = 0.28 See_Comment [Autom ated message] The 9738212542) system which ge nerated this result tra nsmitted reference range : <0.41 ?g/mL (FEU). Th e reference range was not used to interpr et this result as normal/abnormal . MERRILL (test code = MERRILL) This test may be used in conjunction with a clinical pretest probability (PTP) assessment model to exclude venous thromboembolism (VTE) in patients suspected of deep venous thrombosis (DVT) and pulmonary embolism (PE) A D-Dimer value less than 0.50 ?g/ml (FEU) has a negative predicative value of 96 to 100% (95% CI)and 97 to 100% (95% CI) as an aid in the diagnosis of deep vein thrombosis (DVT) and pulmonary embolism when there is low or moderate pretest probability of PE or DVT. D-Dimer values are expressed in initial fibrinogen equivalent units (FEU)" The assay results should be used with other information, including the clinical context, in forming a diagnosis. Lab Interpretation Normal (test code = 63681-5) [facility] [id number] 00:36:39 Test Item Value Reference Range Interpretation Comments TSH (test code = 2.54 See_Comment [Automated message] 3769374808) The system [employer] generated this result transmitted ref erence range: 0.45 - 4 .70 mIU/L. The refe rence range was not u sed to interpret this result as normal/abnor mal. Lab Interpretation (test Normal code = 07614-7) [facility] [id number] 00:23:16 Test Item Value Reference Range Interpretation Comments FREE T4 (test code = 1.12 See_Comment [Autom ated message] 8395355245) The system [employer] generated this result transmitted ref erence range: 0.78 - 2 .20 ng/dL:. The ref erence range was not u sed to interpret this result as normal/abnor mal. Lab Interpretation (test Normal code = 91599-6) [facility] [id number] 00:18:16 Test Item Value Reference Range Interpretation Comments TROPONIN I (test code = 0.010 ng/mL <=0.034 6728970990) MERRILL (test code = MERRILL) Reference (Normal) [...] biotin. Lab Interpretation Normal (test code = 13012-7) [facility]. METABOLIC PANEL (65350)2022-07-29 00:06:55 Test Item Value Reference Range Interpretation Comments NA (test code = 141 mmol/L 135-145 4781158922) K (test code = 3.7 mmol/L 3.5-5.0 3085180188) CL (test code = 104 mmol/L 98-108 4015399843) CO2 TOTAL (test code = 26 mmol/L 23-31 5815848138) AGAP (test code = 11 2-16 2003124312) BUN (test code = 13 mg/dL 7-23 6952638452) GLUCOSE (test code = 112 mg/dL 70-110 H 7714628042) CREATININE (test code = 0.79 mg/dL 0.60-1.25 8771959686) TOTAL BILI (test code = 0.7 mg/dL 0.1-1.3 2919935807) CALCIUM (test code = 9.1 mg/dL 8.6-10.6 5178219475) T PROTEIN (test code = 8.3 g/dL 6.3-8.2 H 0270002811) ALBUMIN (test code = 4.8 g/dL 3.5-5.0 3190969611) ALK PHOS (test code = 89 U/L 34-122 4506234768) ALTv (test code = 50 U/L 5-50 1742-6) AST(SGOT) (test code = 39 U/L 13-40 6428523293) eGFR (test code = 116.0 mL/min/1.73m2 8304922155) MERRILL (test code = MERRILL) Association of [...] tests). Lab Interpretation Abnormal (test code = 97637-9) [facility]2023-06-10 00:06:35 Test Item Value Reference Range Interpretation Comments PHOSPHORUS (test code = 0855472039) 3.6 mg/dL 2.5-5.0 Lab Interpretation (test code = Normal 39740-9) [facility]2023-06-10 00:06:15 Test Item Value Reference Range Interpretation Comments LIPASE (test code = 5879373313) 63 U/L 0-220 Lab Interpretation (test code = Normal 20010-3) [facility] WITH CJSY6332-08-20 23:53:53 Test Item Value Reference Range Interpretation Comments WBC (test code = 11.88 See_Comment H [Automated 8424-2) message] The sy stem which generated this result transmitted reference range : 4.20 - 10.70 10*3/?L. The reference range was not used to interpret this result as normal/abnormal . RBC (test code = 5.34 See_Comment [Automated 789-8) message] The sy stem which generated this result transmitted reference range : 4.26 - 5.52 10*6/?L. The reference range was not used to interpret this result as normal/abnormal . HGB (test code = 15.0 g/dL 12.2-16.4 718-7) HCT (test code = 45.9 % 38.4-49.3 4544-3) MCV (test code = 86.0 fL 81.7-95.6 787-2) MCH (test code = 28.1 pg 26.1-32.7 785-6) MCHC (test code = 32.7 g/dL 31.2-35.0 786-4) RDW-SD (test code = 41.1 fL 38.5-51.6 15879-6) RDW-CV (test code = 13.2 % 12.1-15.4 788-0) PLT (test code = 306 See_Comment [Automated 777-3) message] The sy stem which generated this result transmitted reference range : 150 - 328 10*3/ ?L. The reference r fadi was not used to interpret this result as normal/abnormal . MPV (test code = 10.9 fL 9.8-13.0 68412-4) NRBC/100 WBC (test 0.0 See_Comment [Automat ed code = 1152586579) message] The system which generated this result transmitted reference range : 0.0 - 10.0 /100 WBCs. The refer ence range was not u sed to interpret th is result as normal/abnormal . NRBC x10^3 (test code See_Comment [Auto mated = 2398572068) message] The s ystem which generated this result transmitted reference range : 10*3/?L. The reference range was not used to interpret this result as normal/abnormal . GRAN MAT (NEUT) % 66.7 % (test code = 770-8) IMM GRAN % (test code 0.60 % = 9864048943) LYMPH % (test code = 24.1 % 736-9) MONO % (test code = 5.8 % 5905-5) EOS % (test code = 2.5 % 713-8) BASO % (test code = 0.3 % 706-2) GRAN MAT x10^3(ANC) 7.93 10*3/uL 1.99-6.95 H (test code = 8328338716) IMM GRAN x10^3 (test 0.07 10*3/uL 0.00-0.06 H code = 2142219543) LYMPH x10^3 (test code 2.86 10*3/uL 1.09-3.23 = 731-0) MONO x10^3 (test code 0.69 10*3/uL 0.36-1.02 = 742-7) EOS x10^3 (test code = 0.30 10*3/uL 0.06-0.53 711-2) BASO x10^3 (test code 0.03 10*3/uL 0.01-0.09 = 704-7) Lab Interpretation Abnormal (test code = 81064-9) [facility] [id number] 20:44:56 Test Item Value Reference Interpretation Comments Range TROPONIN I (test 0.012 ng/mL See_Comment [Automated code = 3533662317) message] The system which generated this result [...] biotin. Lab Interpretation Normal (test code = 64358-3) [facility] WITH [id number] 20:39:57 Test Item Value Reference Range Interpretation Comments WBC (test code = See_Comment [Automated 6690-2) message] The sy stem which generated this [...] RDW-SD (test code = 41.3 fL 38.5-51.6 50152-3) RDW-CV (test code = 13.1 % 12.1-15.4 788-0) PLT (test code = See_Comment [Automated 777-3) message] The sy stem which generated this result transmitted reference range : 150 - 328 10*3/ ?L. The reference r fadi was not used to interpret this result as normal/abnormal . MPV (test code = 11.0 fL 9.8-13.0 06722-9) NRBC/100 WBC (test See_Comment [Automat ed code = 3145294596) message] The system which generated this result transmitted reference range : 0.0 - 10.0 /100 WBCs. The refer ence range was not u sed to interpret th is result as normal/abnormal . NRBC x10^3 (test code <0.01 See_Comment [Auto mated = 8259184759) message] The s ystem which generated this result transmitted reference range : 10*3/?L. The reference range was not used to interpret this result as normal/abnormal . GRAN MAT (NEUT) % 71.6 % (test code = 770-8) IMM GRAN % (test code 0.70 % = 4962446000) LYMPH % (test code = 19.8 % 736-9) MONO % (test code = 5.8 % 5905-5) EOS % (test code = 1.9 % 713-8) BASO % (test code = 0.2 % 706-2) GRAN MAT x10^3(ANC) 7.67 10*3/uL 1.99-6.95 H (test code = 2894950885) IMM GRAN x10^3 (test 0.07 10*3/uL 0.00-0.06 H code = 4308354317) LYMPH x10^3 (test code 2.12 10*3/uL 1.09-3.23 = 731-0) MONO x10^3 (test code 0.62 10*3/uL 0.36-1.02 = 742-7) EOS x10^3 (test code = 0.20 10*3/uL 0.06-0.53 711-2) BASO x10^3 (test code <0.03 0.01-0.09 = 704-7) Lab Interpretation Abnormal (test code = 29715-7) [facility]2022-04-16 20:33:35 Test Item Value Reference Range Interpretation Comments MAGNESIUM (test code = 9972748227) 2.1 mg/dL 1.7-2.4 Lab Interpretation (test code = Normal 86714-3) [facility]. METABOLIC PANEL (25468)2021-06-04 20:33:14 Test Item Value Reference Range Interpretation Comments NA (test code = 140 mmol/L 135-145 4882671895) K (test code = 4.5 mmol/L 3.5-5.0 6590726498) CL (test code = 103 mmol/L 98-108 7741268646) CO2 TOTAL (test code = 24 mmol/L 23-31 8911432472) AGAP (test code = 2-16 6342797556) BUN (test code = 12 mg/dL 7-23 8488518749) GLUCOSE (test code = 92 mg/dL 70-110 6945811384) CREATININE (test code = 0.78 mg/dL 0.60-1.25 8693460416) TOTAL BILI (test code = 0.6 mg/dL 0.1-1.5 2242594158) CALCIUM (test code = 8.9 mg/dL 8.6-10.6 1092245348) T PROTEIN (test code = 8.3 g/dL 6.3-8.2 H 0650279575) ALBUMIN (test code = 5.0 g/dL 3.5-5.0 9395800549) ALK PHOS (test code = 97 U/L 34-122 6870734671) ALTv (test code = 27 U/L 5-50 1742-6) AST(SGOT) (test code = 26 U/L 13-40 6138536324) eGFR (test code = mL/min/1.73m2 5065915525) MERRILL (test code = MERRILL) Association of [...] tests). Lab Interpretation Abnormal (test code = 77972-9) [facility] JJVDKDM1548-46-12 22:10:20 Test Item Value Reference Range Interpretation Comments TSH (test code = See_Comment [Automated message] 7870245004) The system [employer] generated this result transmitted ref erence range: 0.45 - 4 .70 mIU/L. The refe rence range was not u sed to interpret this result as normal/abnor mal. Lab Interpretation (test Normal code = 46607-2) [facility] [id number] 21:52:01 Test Item Value Reference Interpretation Comments Range TROPONIN I (test 0.012 ng/mL See_Comment [Automated code = 2041396900) message] The system which generated this result [...] biotin. Lab Interpretation Normal (test code = 94328-8) [facility] TaylorN-TERMINAL PZI-FSC1082-51-08 21:48:55 Test Item Value Reference Range Interpretation Comments NT-proBNP (test code 27 pg/mL See_Comment [Autom ated = 7586140958) message] The system which generated this result transmitted reference range : <=125. The reference range was not used to interpret this result as normal/abnormal . MERRILL (test code = MERRILL) Biotin has been reported to cause a negative bias, interpret results relative to patient's use of biotin. Lab Interpretation Normal (test code = 57479-0) [facility] METABOLIC PANEL (10498)2021-05-27 21:40:15 Test Item Value Reference Range Interpretation Comments NA (test code = 137 mmol/L 135-145 2138137981) K (test code = 5.4 mmol/L 3.5-5.0 H 4930964163) CL (test code = 104 mmol/L 98-108 1798243761) CO2 TOTAL (test code = 25 mmol/L 23-31 0128608640) AGAP (test code = 2-16 3691045141) BUN (test code = 14 mg/dL 7-23 7297601325) GLUCOSE (test code = 96 mg/dL 70-110 6928695051) CREATININE (test code = 0.84 mg/dL 0.60-1.25 6252022690) TOTAL BILI (test code = 0.9 mg/dL 0.1-1.4 3871656175) CALCIUM (test code = 8.5 mg/dL 8.6-10.6 L 7777832411) T PROTEIN (test code = 8.1 g/dL 6.3-8.2 9008168741) ALBUMIN (test code = 4.8 g/dL 3.5-5.0 8182654289) ALK PHOS (test code = 79 U/L 34-122 4778933420) ALTv (test code = 32 U/L 5-50 1742-6) AST(SGOT) (test code = 44 U/L 13-40 H 3298641182) eGFR (test code = mL/min/1.73m2 2111256161) MERRILL (test code = MERRILL) Association of [...] tests). Lab Interpretation Abnormal (test code = 90384-0) [facility]2022-[facility]-08 21:39:39 Test Item Value Reference Range Interpretation Comments LIPASE (test code = 2585927314) 62 U/L 0-220 Lab Interpretation (test code = Normal 61505-8) [facility] WITH [id number] 21:20:32 Test Item Value Reference Range Interpretation Comments WBC (test code = See_Comment [Automated message] 0490-2) The system [employer] generated this result transmitted ref erence range: 4.20 - 1 0.70 10*3/?L. The re ference range was not u sed to interpret this result as normal/abnor mal. RBC (test code = See_Comment [Automated message] 309-8) The system [employer] generated this result transmitted ref erence range: [...] RDW-SD (test code 42.2 fL 38.5-51.6 = 01969-8) RDW-CV (test code 13.4 % 12.1-15.4 = 788-0) PLT (test code = See_Comment [Automated message] 777-3) The system whic h generated this result transmitted ref erence range: 150 - 32 8 10*3/?L. The re ference range was not u sed to interpret this result as normal/abnor mal. MPV (test code = 10.8 fL 9.8-13.0 99714-7) NRBC/100 WBC (test See_Comment [Automat ed message] code = 3617345048) The syste m which generated this result transmitted ref erence range: 0.0 - 10 .0 /100 WBCs. The refer ence range was not u sed to interpret this result as normal/abnor mal. NRBC x10^3 (test <0.01 See_Comment [Automated message] code = 4061581842) The syste m which generated this result transmitted ref erence range: 10*3/?L. The reference range was not used to interpr et this result as normal/abnormal . GRAN MAT (NEUT) % 69.2 % (test code = 770-8) IMM GRAN % (test 0.30 % code = 7214045917) LYMPH % (test code 19.2 % = 736-9) MONO % (test code 7.0 % = 5905-5) EOS % (test code = 4.1 % 713-8) BASO % (test code 0.2 % = 706-2) GRAN MAT 6.94 10*3/uL 1.99-6.95 x10^3(ANC) (test code = 6299588298) IMM GRAN x10^3 0.03 10*3/uL 0.00-0.06 (test code = 0706364875) LYMPH x10^3 (test 1.93 10*3/uL 1.09-3.23 code = 731-0) MONO x10^3 (test 0.70 10*3/uL 0.36-1.02 code = 742-7) EOS x10^3 (test 0.41 10*3/uL 0.06-0.53 code = 711-2) BASO x10^3 (test <0.03 0.01-0.09 code = 704-7) [facility], Lqvuf4776-65-91 08:13:00 Test Item Value Reference Range Interpretation Comments Culture, Urine (test code = URC) NG48 Culture, Sillk9289-83-55 14:17:00 Test Item Value Reference Range Interpretation Comments Culture, Urine (test code = URC) NG36 Erhcecddss5669-20-14 09:06:00 Test Item Value Reference Range Interpretation [...] Moderate Negative A UABLD) Urine Source: Urine EhhngoTmfheawdl7826-72-42 08:25:00 Test Item Value Reference Range Interpretation [...] ce Range for = EGFRMDRD) Estimated GFR: Greater than 90 mL/min/ 1.73 m2NOTE:The MDRD equation has no t been validated for u se with theelderly (ove r 70 years of age), women, patients with serious comorbi d condition or pe rsons with extremes o fbody size, muscle ma ss, or nutritional sta tus. Chemistry (test code 110 mg/dL 70-105 H = GLU-T) Chemistry (test code 8.8 mg/dL 7.8-10.44 N = CA) Tucxbmntxc3420-47-90 08:12:00 Test Item Value Reference Range Interpretation [...] code = BASO#) 0.0 thou/uL 0.0-0.2 N Nfutaqxvha4159-00-58 16:45:00 Test Item Value Reference Range Interpretation [...] UABLD) Large Negative A Urine Source: Urine HljpmxHpjzdhhrui8309-66-08 16:45:00 Test Item Value Reference Range Interpretation [...] None Seen A UAAMOR) Urine Source: Urine EiumudTsqlztamj0762-68-60 16:18:00 Test Item Value Reference Range Interpretation [...] = CREATT) Chemistry (test Greater than 90 Reference Range for code = EGFRMDRD) Estimated G FR: Greater than 90 mL/min/1.73 m2NOTE:The MDRD equation has no t been validated for use with theeld erly (over 70 years of age), women, patients with serious comorbi d condition or pe rsons with extremes o fbody size, muscle ma ss, or nutritional status. Chemistry (test 96 mg/dL 70-105 N code = GLU-T) Chemistry (test 9.1 mg/dL 7.8-10.44 N code = CA) Qwpzptjtgn0775-32-26 16:05:00 Test Item Value Reference Range Interpretation [...] BASO#) 0.0 thou/uL 0.0-0.[address] Stone ProtocolVALOR HEALTHName: OUMAR BRADLEY : 1990 [facility]: [facility]AR BRADLEY [address] [facility] Phys: [place] [address] : 1990 Age: 29 SEX:M [phone] Exam Date: 12/03/20 Status: REG ER Acct: [id number] Loc: ESTRELLITA VALENZUELA Pt Unit #: [id number] Report #: [id number] CC: MICHAEL VALVERDE LMDanielle CAT SCAN REPORT Order # Category/Exam [id number] CT/CT Stone Protocol ([id number]): . Results CT of abdomen and pelvis: 12/03/2020 COMPARISON: None HISTORY: Left-sided flank pain TECHNIQUE: Axial CTimaging at 5 mm intervals from lung bases [...] hydronephrosis and proximal hydroureter on the left. This is secondary to a stone within the [...] the cecal apex suggests prior appendectomy. No acuteosseous abnormality is evident. IMPRESSION: Obstructive uropathy on the left secondary to a 3 mm stone within the proximal left ureter.. Reported By: Rickie Christine MD Electronically Signed Date/Time: 12/03/20 171 Technologist: Dictated Date/Time: 12/03/20 1706 Transcribed Date/Time:
[2022-07-29 11:43] LABS: Absolute Lymphocytes (CBC) 1.6 K/uL (0.7-4.9); Lymphocytes % 20.1 % (15.3-44.8); MCV 83.9 fL (80-100); MPV 8.6 fL (7.6-11.3); RBC Red Blood Cell Count 5.25 M/uL (4.33-5.43)
--- NOTE | 2022-07-29 11:45 | RAD REPORT ---
EXAM DESCRIPTION: RAD - Chest Single View - 07/29/2022 11:38 am CLINICAL HISTORY: PALPITATIONS COMPARISON: Chest Single View dated 06/30/2021 FINDINGS: Lines: None. Lungs: No evidence of edema or pneumonia. Pleural: No significant pleural effusions or pneumothorax. Cardiac: The heart size is within normal limits. Mediastinum: Within normal limits. Bones: No acute fractures. Other: None IMPRESSION: No acute cardiopulmonary disease.
[2022-07-29 12:02] LABS: Magnesium 2.6 mg/dL (1.6-2.4); Potassium 3.9 mEq/L (3.5-5.1)
[2022-07-29 12:09] LABS: Troponin High Sensitivity 91.4 pg/mL (<58.9)
--- NOTE | 2022-07-29 12:42 | EDPHYS ---
Physician Documentation [facility] Name: Lio Camacho Age: 31 yrs Sex: Male : 1990 Arrival Date: 07/29/2022 Time: 09:59 Bed 16 Private MD: ED Physician Eliud Omer HPI: 07/29 10:34 This 31 yrs old Male presents to ER via Ambulatory with complaints of HEART rn PALPITATION. 10:34 The patient presents with a history of irregular heart beat, heart skipping beats. rn Onset: The symptoms/episode began/occurred at an unknown time. Duration: The patient or guardian reports multiple episodes, that are intermittent. Modifying factors: The symptoms are aggravated by anxiety, The symptoms are alleviated by nothing. Associated signs and symptoms: Pertinent positives: anxiety, Pertinent negatives: chest pain, fever, lightheadedness, SOB, syncope. Severity of symptoms: At their worst the symptoms were moderate in the emergency department the symptoms have improved. The patient has experienced similar episodes in the past. The patient has been recently seen by a physician:. Pt reports intermittent palpitations, has been happening for 1 year atleast daily. Seen at [facility] yesterday with "normal tests". Takes metoprolol. Reports keeping him from working and enjoying life. No chest pain or sob. No abd pain. . Historical: - Allergies: 10:19 No Known Allergies; bp - Home Meds: 10:19 Metoprolol Tartrate Oral [Active]; bp - PMHx: 10:19 Palpitations; bp - PSHx: 10:19 Appendectomy; bp - Immunization history:: Adult Immunizations up to date. - Social history:: Smoking status: Patient denies any tobacco usage or history of. - Family history:: not pertinent. - Hospitalizations: : No recent hospitalization is reported. ROS: 10:34 Constitutional: Negative for fever, chills, and weight loss, Eyes: Negative for injury, rn pain, redness, and discharge, Neck: Negative for injury, pain, and swelling, Cardiovascular: Negative for chest pain, and edema Respiratory: Negative for shortness of breath, cough, wheezing, and pleuritic chest pain, Abdomen/GI: Negative for abdominal pain, nausea, vomiting, diarrhea, and constipation, MS/Extremity: Negative for injury and deformity, Skin: Negative for injury, rash, and discoloration, Neuro: Negative for headache, weakness, numbness, tingling, and seizure. Exam: 10:34 Constitutional: This is a well developed, well nourished patient who is awake, alert, rn appears anxious Head/Face: Normocephalic, atraumatic. Cardiovascular: Regular rate, irregular rhythm. Respiratory: No increased work of breathing, no retractions or nasal flaring. Abdomen/GI: soft, non-tender Skin: Warm, dry MS/ Extremity: Pulses equal, no cyanosis. Neuro: Awake and alert, GCS 15, oriented to person, place, time, and situation. 16:44 ECG was reviewed by the Attending Physician. rn Vital Signs: 10:16 BP 143 / 97; Pulse 79; Resp 16; Temp 97.5; Pulse Ox 98% ; Weight 117.93 kg; Height 5 bp ft. 11 in. ; 13:00 BP 138 / 91; Pulse 78; Resp 16; Pulse Ox 95% on R/A; eh3 10:16 Body Mass Index 36.26 (117.93 kg, 180.34 cm) bp MDM: 10:08 Patient medically screened. rn 12:41 Differential diagnosis: arrythmia, dehydration, stress disorder. Data reviewed: vital rn signs, nurses notes, lab test result(s), EKG, radiologic studies, plain films, and as a result, I will admit patient. Consideration of Admission/Observation Patient was admitted/placed on observation. Escalation of care including admission/observation considered. Counseling: I had a detailed discussion with the patient and/or guardian regarding: the historical points, exam findings, and any diagnostic results supporting the discharge/admit diagnosis, lab results, radiology results, the need for further work-up and treatment in the hospital. Response to treatment: the patient's symptoms have mildly improved after treatment, and as a result, I will admit patient. 07/29 10:32 Order name: Basic Metabolic Panel; Complete Time: 12: rn 07/29 10:32 Order name: CBC with Diff; Complete Time: 11:48 rn 07/29 10:32 Order name: Magnesium; Complete Time: 12: rn 07/29 10:32 Order name: NT PRO-BNP; Complete Time: 12: rn 07/29 10:32 Order name: Troponin HS; Complete Time: 12: rn 07/29 13:49 Order name: Lipid Profile EDMS 07/29 13:49 Order name: Lipid Profile EDAL 07/29 13:49 Order name: T4 Free EDMS 07/29 13:49 Order name: T4 Free EDMS 07/29 13:49 Order name: Thyroid Stimulating Hormone EDMS 07/29 13:49 Order name: Thyroid Stimulating Hormone EDMS 07/29 13:49 Order name: Troponin High Sensitivity EDMS 07/29 13:49 Order name: Troponin High Sensitivity; Complete Time: 16:42 EDMS 07/29 13:49 Order name: Troponin High Sensitivity EDMS 07/29 13:49 Order name: Troponin High Sensitivity EDMS 07/29 13:49 Order name: Troponin High Sensitivity EDMS 07/29 13:49 Order name: Troponin High Sensitivity EDMS 07/29 13:49 Order name: Troponin High Sensitivity EDAL 07/29 10:32 Order name: XRAY Chest (1 view); Complete Time: 11:48 rn 07/29 13:49 Order name: Echo with Doppler EDAL 07/29 13:49 Order name: Echo with Doppler EDAL 07/29 10:32 Order name: EKG; Complete Time: 10:33 rn 07/29 13:49 Order name: Heart Healthy EDAL 07/29 10:32 Order name: Cardiac monitoring; Complete Time: 13:32 rn 07/29 10:32 Order name: EKG - Nurse/Tech; Complete Time: 11:44 rn 07/29 10:32 Order name: IV Saline Lock; Complete Time: 11:44 rn 07/29 10:32 Order name: Labs collected and sent; Complete Time: 11:44 rn 07/29 10:32 Order name: O2 Per Protocol; Complete Time: 13:32 rn 07/29 10:32 Order name: O2 Sat Monitoring; Complete Time: 13:32 rn EC:44 Rate is 80 beats/min. Rhythm is irregular with PACs. QRS [place] is Normal. TN interval is rn normal. QRS interval is normal. QT interval is normal. No Q waves. T waves are Normal. No ST changes noted. Clinical impression: sinus rhythm with PACs. Interpreted by me. Reviewed by me. Administered Medications: No medications were administered Disposition Summary: 07/29/22 12:42 Hospitalization Ordered Hospitalization Status: Observation rn Provider: Talia Cueto rn Condition: Stable rn Problem: an ongoing problem rn Symptoms: are unchanged rn Bed/Room Type: Standard rn Location: Telemetry/MedSurg (observation)(07/29/22 15:48) eb Room Assignment: [facility](07/29/22 15:48) Diagnosis - Palpitations rn - Anxiety disorder due to known physiological condition rn - Elevated troponin rn Forms: - Medication Reconciliation Form rn - SBAR form rn Signatures: Dispatcher [employer] EDEliud Rodriguez MD MD rn Calderon, Audri RN RN aa Don Thomas, RN RN Shayna Machado Corrections: (The following items were deleted from the chart) 13:52 12:42 Telemetry/MedSurg (observation) rn aa5 13:52 12:42 rn aa5 15:48 13:52 [facility] ER HOLD aa5 eb 15:48 13:52 ERHOLD- aa5 eb
--- NOTE | 2022-07-29 12:42 | ER ---
Nurse's Notes [facility] Name: Lio Camacho Age: 31 yrs Sex: Male : 1990 Arrival Date: 07/29/2022 Time: 09:59 Bed 16 Private MD: Diagnosis: Palpitations;Anxiety disorder due to known physiological condition;Elevated troponin Presentation: 07/29 10:16 Chief complaint: Patient states: PALPITATIONS x2 YR, DX WITH PVC Y/D AT [facility]. bp Coronavirus screen: At this time, the client does not indicate any symptoms associated with coronavirus-19. Ebola Screen: No symptoms or risks identified at this time. Initial Sepsis Screen: Does the patient meet any 2 criteria? No. Patient's initial sepsis screen is negative. Does the patient have a suspected source of infection? No. Patient's initial sepsis screen is negative. Risk Assessment: Do you want to hurt yourself or someone else? Patient reports no desire to harm self or others. Onset of symptoms is unknown. 10:16 Method Of Arrival: Ambulatory bp 10:16 Acuity: MARTHA 3 bp Triage Assessment: 10:19 General: Appears distressed, Behavior is cooperative, appropriate for age, anxious. bp Pain: Denies pain. EENT: No deficits noted. Neuro: No deficits noted. Cardiovascular: Reports palpitations. Respiratory: No deficits noted. GI: No signs and/or symptoms were reported involving the gastrointestinal system. : No signs and/or symptoms were reported regarding the genitourinary system. Derm: No deficits noted. Musculoskeletal: No deficits noted. Historical: - Allergies: 10:19 No Known Allergies; bp - Home Meds: 10:19 Metoprolol Tartrate Oral [Active]; bp - PMHx: 10:19 Palpitations; bp - PSHx: 10:19 Appendectomy; bp - Immunization history:: Adult Immunizations up to date. - Social history:: Smoking status: Patient denies any tobacco usage or history of. - Family history:: not pertinent. - Hospitalizations: : No recent hospitalization is reported. Screenin:00 [facility] ED Fall Risk Assessment (Adult) Score/Fall Risk Level 0 - 2 = Low Risk. Abuse eh3 screen: Denies threats or abuse. Denies injuries from another. Nutritional screening: No deficits noted. Tuberculosis screening: No symptoms or risk factors identified. Assessment: 13:00 General: Appears in no apparent distress. uncomfortable, Behavior is calm, cooperative, eh3 appropriate for age. Pain: Denies pain. Neuro: Level of Consciousness is awake, alert, obeys commands, Oriented to person, place, time, situation. Cardiovascular: Capillary refill < 3 seconds Patient's skin is warm and dry. Cardiovascular: Reports palpitations, Rhythm is irregular. Respiratory: Airway is patent Respiratory effort is even, unlabored, Respiratory pattern is regular, symmetrical. GI: Abdomen is round non-distended. : No signs and/or symptoms were reported regarding the genitourinary system. EENT: No signs and/or symptoms were reported regarding the EENT system. Derm: Skin is pink, warm \T\ dry. Musculoskeletal: No signs and/or symptoms reported regarding the musculoskeletal system. Vital Signs: 10:16 BP 143 / 97; Pulse 79; Resp 16; Temp 97.5; Pulse Ox 98% ; Weight 117.93 kg; Height 5 bp ft. 11 in. ; 13:00 BP 138 / 91; Pulse 78; Resp 16; Pulse Ox 95% on R/A; eh3 10:16 Body Mass Index 36.26 (117.93 kg, 180.34 cm) bp ED Course: 10:03 Patient arrived in ED. im 10:08 Eliud Omer MD is Attending Physician. rn 10:19 Triage completed. bp 10:20 Arm band placed on. bp 11:30 Inserted saline lock: 22 gauge in left hand, using aseptic technique. mb9 11:39 XRAY Chest (1 view) In Process Unspecified. EDMS 11:40 EKG done, by ED staff, reviewed by Eliud Omer MD. mb9 11:44 Basic Metabolic Panel Sent. mb9 11:44 CBC with Diff Sent. mb9 11:44 Magnesium Sent. mb9 11:44 NT PRO-BNP Sent. mb9 11:44 Troponin HS Sent. mb9 12:41 Talia Cueto MD is Hospitalizing Provider. rn 13:00 Patient has correct armband on for positive identification. Bed in low position. Call eh3 light in reach. Side rails up X2. Client placed on continuous cardiac and pulse oximetry monitoring. NIBP monitoring applied. Administered Medications: No medications were administered Outcome: 12:42 Decision to Hospitalize by Provider. rn 19:09 Patient left the ED. aa5 Signatures: Dispatcher [employer] EDMS Eliud Omer MD MD rn Calderon, Audri RN RN aa5 Don Thomas RN Caren Giles RN RN 3 Sharri, Lyubov Wise RN RN mb9 Zena Schilling
[2022-07-29] MEDS ORDERED: ALPRAZOLAM 0.25 MG TABLET PO PRN (13:43)
[2022-07-29] MEDS ORDERED: ACETAMINOPHEN 500 MG TAB PO PRN (13:43)
[2022-07-29] MEDS ORDERED: METOPROLOL TARTRATE 5 MG/5 ML INJ IV PRN (13:43)
--- NOTE | 2022-07-29 13:48 | P.HP ---
Certification for Inpatient Patient admitted to: Observation With expected LOS: <2 Midnights Patient will require the following post-hospital care: None Practitioner: I am a practitioner with admitting privileges, knowledge of patient current condition, hospital course, and medical plan of care. Services: Services provided to patient in accordance with Admission requirements found in Title 42 Section 412.3 of the Code of Federal Regulations Patient History Date of Service: 07/29/22 Reason for admission: Palpitations; premature atrial contractions History of Present Illness: Patient is a 31-year-old gentleman comes into the hospital with palpitations. Patient also had elevated troponin. Patient has had this about a year ago and had work-up done in the hospital. Troponins at that time were also elevated. Patient continued to have premature atrial contractions and he states he can feel them, at his chest. This has been very concerning and debilitating to him. He states he thinks about this all the time. He cannot really function at work and has lost jobs because of this. Plan at this time is to go ahead and admit him to the hospital and do serial troponins. We will repeat his EKG in the morning. I will get cardiology consultation. However, this is most likely nothing that is aggressive intervention at this time and can be followed as an outpatient. We will do serial troponins and we will wait for cardiology recommendation. Allergies No Known Allergies Allergy (Unverified 06/30/21 13:30) Home Medications: Metoprolol Succinate [Toprol Xl*] 25 mg PO DAILY 07/29/22 - Past Medical/Surgical History Diabetic: No -: Palpitations -: APPENDECTOMY - Family History Father Medical History: Hypertension, Other (see notes) Notes: HIGH CHOLESTEROL - Social History Smoking Status: Former smoker Alcohol use: No CD- Drugs: No Caffeine use: No Review of Systems 10-point ROS is otherwise unremarkable Physical Examination - Vital Signs Temperature: 98 F Blood Pressure: 140/80 Pulse: 88 Respirations: 18 Pulse Ox (%): 96 - Physical Exam General: Alert, In no apparent distress, Oriented x3 HEENT: Atraumatic, PERRLA, Mucous membr. moist/pink, EOMI, Sclerae nonicteric Neck: Supple, 2+ carotid pulse no bruit, No LAD, Without JVD or thyroid abnormality Respiratory: Clear to auscultation bilaterally, Normal air movement Cardiovascular: Regular rate/rhythm, Normal S1 S2, No murmurs Gastrointestinal: Normal bowel sounds, Soft and benign, Non-distended, No tenderness Musculoskeletal: No clubbing, No swelling, No tenderness Integumentary: No rashes Neurological: Normal gait, Normal speech, Normal strength at 5/5 x4 extr, Normal tone, Sensation intact, Cranial nerves 3-12 intact, Normal affect Lymphatics: No axilla or inguinal lymphadenopathy - Studies Laboratory Data (last 24 hrs) 07/29/22 11:34: WBC 7.90, Hgb 14.2, Hct 44.0, Plt Count 287 07/29/22 11:34: Sodium 137, Potassium 3.9, BUN 11, Creatinine 0.86, Glucose 108 H, Magnesium 2.6 H Assessment & Plan - Problems (Diagnosis) (1) Premature atrial contraction Current Visit: Yes Status: Acute (2) Palpitations Current Visit: Yes Status: Acute (3) Anxiety disorder Current Visit: Yes Status: Acute - Plan -High-sensitivity troponin -Cardiology consultation -Repeat EKG -Work-up for other etiologies of palpitations and elevated troponin -Lipid profile -Laundry Or Dry Cleaners Counter Clerk regarding modifying risk for cardiac disease Discharge Plan: Home Plan to discharge in: 24 Hours - Advance Directives Does patient have a Living Will: No Does patient have a Durable POA for Healthcare: No - Code Status/Comfort Care Code Status Assessed: Yes Code Status: Full Code Critical Care: No Time Spent Managing PTS Care (In Minutes): 45
[2022-07-29] MEDS: clonazePAM 0.5 MG TAB PO SCH ×2 (14:35→20:24)
[2022-07-29] MEDS ORDERED: clonazePAM 0.5 MG TAB ONE (14:40)
[2022-07-29 14:47] VITALS: BMI 36.1
[2022-07-29] MEDS: METOPROLOL TAR 50 MG TAB PO SCH (17:01)
[2022-07-29 20:15] VITALS: O2SAT 98
[2022-07-30 07:24] LABS: Absolute Lymphocytes (CBC) 2.4 K/uL (0.7-4.9); Hematocrit 43.1 % (39.6-49.0); Lymphocytes % 23.6 % (15.3-44.8); MCV 83.3 fL (80-100); MPV 8.9 fL (7.6-11.3); RBC Red Blood Cell Count 5.17 M/uL (4.33-5.43)
[2022-07-30 07:47] LABS: Thyroid Stimulating Hormone 3.59 uIU/mL (0.358-3.740)
[2022-07-30 08:04] LABS: Albumin 3.8 g/dL (3.4-5.0); Bilirubin Total 0.7 mg/dL (0.2-1.0); Potassium 3.7 mEq/L (3.5-5.1); Protein, Total 7.8 g/dL (6.4-8.2)
[2022-07-30 08:06] LABS: Troponin High Sensitivity 91.3 pg/mL (<58.9)
[2022-07-30] MEDS: METOPROLOL TAR 50 MG TAB PO SCH (08:43)
[2022-07-30] MEDS: clonazePAM 0.5 MG TAB PO SCH (08:43)
[2022-07-30] MEDS ORDERED: ASPIRIN EC 81 MG TAB PO SCH (09:00)
[2022-07-30] MEDS ORDERED: ENOXAPARIN 40 MG/0.4 ML SQ SCH (09:00)
--- NOTE | 2022-07-30 10:17 | CON ---
Date of Consultation: 07/30/2022 Reason For Consultation: Palpitation. History Of Present Illness: The patient is 31. Apparently, has had palpitations for many years for which he takes Toprol-XL 25 mg daily. He has these episodes of palpitations that sometimes are very severe and he is worried about taking metoprolol because it makes him tired and fatigued and does not have a good quality of life. Nevertheless, he cannot relate his palpitations anything in particular . Denied PND. Denied orthopnea, pedal edema. He denied any syncope or chest pain with it. Denied any nausea or vomiting or diaphoresis, but he is very symptomatic. According to our data, he has had some PACs and PVCs, but no documented SVT or VT or AFib. Allergies: NONE. Medications: Include Toprol-XL 25 daily. Physical Examination: By Dr. Cueto in the office was normal. Laboratory Data: On his blood work, his troponin was 87 and secondary to demand ischemia from the pa lpitation. Impression: Mr. Camacho probably has PVCs or PACs. He could possibly have some short runs of SVT o r atrial fibrillation or atrial flutter, which is unlikely, but I do recommend doubling his Toprol, o btain a 7 or 14-day event monitor as an outpatient, I will make an arrangement for that. If he does have SVT or atrial fibrillation or flutter, then I would refer him for an ablation. This was discussed with him and his mom. CRUZ/ANA Voice ID: [id number] Report ID: [id number]
[2022-07-30 12:30] VITALS: BP 105/61; TEMP 98.3
--- NOTE | 2022-07-31 12:08 | EKG ---
Test Date: 2022-07-29 Test Time: 11:41:47 Regional Safety Manager: MB MEASUREMENT RESULTS: Intervals: Rate: 80 NE: 176 QRSD: 98 QT: 370 QTc: 426 [place]: P: 33 NE: 176 QRS: 69 T: 48 INTERPRETIVE STATEMENTS: Sinus rhythm with premature atrial complexes Otherwise normal ECG Compared to ECG 06/30/2021 09:35:35 No significant changes Electronically Signed On 07-31-22 12:01:10 CDT by Terrell Hidalgo
== END 2022-07-30 13:12 | disposition home or self-care (01) ==
LOC: ER 09:59 → ERHOLD 13:43 → 2ND 16:12
PROVIDERS: ADMIT Hospitalist; ATTEND Hospitalist
DX: I49.1 Atrial premature depolarization (principal); R77.8 Other specified abnormalities of plasma proteins; F41.9 Anxiety disorder, unspecified
CPT/HCPCS: 36415; 71045; 80048; 80053; 80061; 82533; 82607; 83735; 83880; 84439; 84443; 84484; 85025; 93005; 99284; G0378; J1650